=== PATIENT | male | born 1990 | race Caucasian/White ===

== ENCOUNTER → 2023-07-27 | Outpatient (CLI) | payer OTHER ==
[2023-07-27 08:05] LABS: BASOPHILS # (AUTO) 0.04 K/uL (0.00-0.20); BASOPHILS % (AUTO) 0.5 % (0.0-5.0); EOSINOPHILS # (AUTO) 0.18 K/uL (0.00-0.70); EOSINOPHILS % (AUTO) 2.2 % (0.0-8.0); HEMATOCRIT 41.4 % (42-54); IMMATURE GRANULOCYTE ABSOLUTE 0.05 K/uL (0-1); LYMPHOCYTES # (AUTO) 3.4 K/uL (1.0-4.8); LYMPHOCYTES % (AUTO) 42.8 % (21.0-51.0); MEAN CORPUSCULAR HEMOGLOBIN 32.7 pg (27.0-33.0); MEAN CORPUSCULAR HGB CONC 35.7 g/dL (32.0-36.0); MEAN CORPUSCULAR VOLUME 91.6 fL (79-99); MONOCYTES # (AUTO) 0.7 K/uL (0.1-1.0); MONOCYTES % (AUTO) 9.1 % (3.0-13.0); NEUTROPHILS # (AUTO) 3.6 K/uL (1.8-7.7); NEUTROPHILS % (AUTO) 44.8 % (40.0-77.0); PLATELET COUNT (AUTO) 328 K/uL (130-400); RED BLOOD CELL COUNT(AUTO) 4.52 MIL/uL (4.50-6.20); RED CELL DISTRIBUTION WIDTH 12.5 % (11.0-15.5)
[2023-07-27 08:11] LABS: CREATININE,URINE RANDOM 249 mg/dL (30-135)
[2023-07-27 08:21] LABS: ADD UA MICROSCOPIC YES; APPEARANCE,URINE CLEAR (CLEAR); BILIRUBIN,URINE NEGATIVE (NEGATIVE); COLOR,URINE YELLOW (YELLOW); GLUCOSE, URINE (UA) NEGATIVE (NEGATIVE); KETONES,URINE NEGATIVE (NEGATIVE); LEUKOCYTE ESTERASE ,URINE NEGATIVE Leu/uL (NEGATIVE); NITRATE,URINE NEGATIVE (NEGATIVE); OCCULT BLOOD,URINE SMALL (NEGATIVE); PH,URINE 5.5 (5.0-8.0); PROTEIN,URINE 10 mg/dL (NEGATIVE); UROBILINOGEN,URINE 0.2 mg/dL (0.2-1.0)
[2023-07-27 08:29] LABS: MUCUS,URINE RARE LPF (None Seen); WBC,URINE 0-1 /HPF (0-1)
[2023-07-27 08:43] LABS: ALBUMIN 3.8 g/dL (3.5-5.0); BILIRUBIN,TOTAL 0.2 mg/dL (0.2-1.0); POTASSIUM 3.7 mmol/L (3.5-5.1); THYROID STIMULATING HORMONE 1.57 uIU/mL (0.36-3.74); TOTAL PROTEIN, SERUM 7.2 g/dL (6.0-8.3)
== END | disposition home or self-care (01) ==
LOC: LAB 07:14
PROVIDERS: ATTEND Nurse Practitioner
DX: Z13.1 Encounter for screening for diabetes mellitus (principal); Z68.34 Body mass index [BMI] 34.0-34.9, adult; E66.9 Obesity, unspecified; J17 Pneumonia in diseases classified elsewhere; J02.9 Acute pharyngitis, unspecified; Z13.220 Encounter for screening for lipoid disorders; Z13.29 Encounter for screening for other suspected endocrine disorder; Z79.899 Other long term (current) drug therapy; M41.24 Other idiopathic scoliosis, thoracic region
CPT/HCPCS: 36415; 71046; 80053; 80061; 81001; 82043; 82306; 82570; 82607; 84443; 85025; 86900; 86901

== ENCOUNTER → 2024-03-02 | Outpatient (CLI) | payer OTHER ==
[2024-03-02 07:54] LABS: BASOPHILS # (AUTO) 0.05 K/uL (0.00-0.20); BASOPHILS % (AUTO) 0.8 % (0.0-5.0); EOSINOPHILS # (AUTO) 0.14 K/uL (0.00-0.70); EOSINOPHILS % (AUTO) 2.2 % (0.0-8.0); HEMATOCRIT 39.8 % (42-54); IMMATURE GRANULOCYTE ABSOLUTE 0.02 K/uL (0-1); LYMPHOCYTES # (AUTO) 2.6 K/uL (1.0-4.8); LYMPHOCYTES % (AUTO) 40.4 % (21.0-51.0); MEAN CORPUSCULAR HEMOGLOBIN 32.8 pg (27.0-33.0); MEAN CORPUSCULAR HGB CONC 35.7 g/dL (32.0-36.0); MEAN CORPUSCULAR VOLUME 91.9 fL (79-99); MONOCYTES # (AUTO) 0.7 K/uL (0.1-1.0); MONOCYTES % (AUTO) 10.5 % (3.0-13.0); NEUTROPHILS % (AUTO) 45.8 % (40.0-77.0); PLATELET COUNT (AUTO) 295 K/uL (130-400); RED BLOOD CELL COUNT(AUTO) 4.33 MIL/uL (4.50-6.20); RED CELL DISTRIBUTION WIDTH 12.1 % (11.0-15.5); WHITE BLOOD COUNT (AUTO) 6.5 K/uL (4.8-10.8)
[2024-03-02 08:05] LABS: CREATININE,URINE RANDOM 135.14 mg/dL (30-135)
[2024-03-02 08:08] LABS: APPEARANCE,URINE CLEAR (CLEAR); BILIRUBIN,URINE NEGATIVE (NEGATIVE); COLOR,URINE YELLOW (YELLOW); GLUCOSE, URINE (UA) NEGATIVE (NEGATIVE); HEMOGLOBIN A1C 5.2 % (4.0-6.0); KETONES,URINE NEGATIVE (NEGATIVE); LEUKOCYTE ESTERASE ,URINE NEGATIVE Leu/uL (NEGATIVE); NITRATE,URINE NEGATIVE (NEGATIVE); PH,URINE 6.5 (5.0-8.0); PROTEIN,URINE NEGATIVE (NEGATIVE); UROBILINOGEN,URINE 0.2 mg/dL (0.2-1.0)
[2024-03-02 08:23] LABS: ADD UA MICROSCOPIC NO
[2024-03-02 08:52] LABS: BILIRUBIN,TOTAL 0.5 mg/dL (0.2-1.0); CREATININE 0.9 mg/dL (0.5-1.3); POTASSIUM 3.9 mmol/L (3.5-5.1); THYROID STIMULATING HORMONE 2.27 uIU/mL (0.36-3.74); TOTAL PROTEIN, SERUM 7.2 g/dL (6.0-8.3)
[2024-03-03 08:11] LABS: PSA ULTRASENSITIVE 0.525 ng/mL (0.000-4.000)
== END | disposition home or self-care (01) ==
LOC: LAB 07:03
PROVIDERS: ATTEND Hospitalist
DX: Z13.220 Encounter for screening for lipoid disorders (principal); Z13.1 Encounter for screening for diabetes mellitus; R53.83 Other fatigue; Z79.899 Other long term (current) drug therapy
CPT/HCPCS: 36415; 80053; 80061; 81003; 82306; 82570; 82607; 83036; 84153; 84403; 84443; 85025

== ENCOUNTER → 2024-03-23 | Outpatient (CLI) | payer OTHER | END | disposition home or self-care (01) | LOC: LAB 07:22 | PROVIDERS: ATTEND Nurse Practitioner | DX: J16.8 Pneumonia due to other specified infectious organisms (principal) | CPT/HCPCS: 36415; 84145; 86738 ==

== ENCOUNTER → 2024-03-24 | Outpatient (CLI) | payer OTHER | END | disposition home or self-care (01) | LOC: LAB 08:06 | PROVIDERS: ATTEND Nurse Practitioner | DX: J16.8 Pneumonia due to other specified infectious organisms (principal); M47.815 Spondylosis without myelopathy or radiculopathy, thoracolumbar region | CPT/HCPCS: 71250 ==

== ENCOUNTER 2024-03-29 21:03 | Emergency (ER) | payer OTHER ==
[~2024-03-29] VITALS: Ht 170.2 cm; Wt 87.5 kg
[2024-03-29 21:26] VITALS: PULSE 79; RESP 18
[2024-03-29 21:29] LABS: BASOPHILS # (AUTO) 0.04 K/uL (0.00-0.20); BASOPHILS % (AUTO) 0.3 % (0.0-5.0); EOSINOPHILS # (AUTO) 0.03 K/uL (0.00-0.70); EOSINOPHILS % (AUTO) 0.2 % (0.0-8.0); HEMATOCRIT 38.4 % (42-54); IMMATURE GRANULOCYTE ABSOLUTE 0.07 K/uL (0-1); LYMPHOCYTES # (AUTO) 2.3 K/uL (1.0-4.8); LYMPHOCYTES % (AUTO) 18.4 % (21.0-51.0); MEAN CORPUSCULAR HEMOGLOBIN 32.8 pg (27.0-33.0); MEAN CORPUSCULAR HGB CONC 35.4 g/dL (32.0-36.0); MEAN CORPUSCULAR VOLUME 92.5 fL (79-99); MONOCYTES # (AUTO) 0.8 K/uL (0.1-1.0); MONOCYTES % (AUTO) 6.1 % (3.0-13.0); NEUTROPHILS # (AUTO) 9.3 K/uL (1.8-7.7); NEUTROPHILS % (AUTO) 74.4 % (40.0-77.0); PLATELET COUNT (AUTO) 365 K/uL (130-400); RED BLOOD CELL COUNT(AUTO) 4.15 MIL/uL (4.50-6.20); RED CELL DISTRIBUTION WIDTH 12.3 % (11.0-15.5); WHITE BLOOD COUNT (AUTO) 12.5 K/uL (4.8-10.8)
[2024-03-29] MEDS: ALBUTEROL 0.083% 2.5 MG/3 ML INH IH ONE (21:30)
[2024-03-29 21:39] LABS: POTASSIUM 3.8 mmol/L (3.5-5.1)
[2024-03-29 21:44] VITALS: PULSE 90; RESP 20
[2024-03-29] MEDS: BUDESONIDE 0.5 MG/2 ML INH IH STA (21:44)
[2024-03-29] MEDS: Solu-medROL 125MG VIAL IVP ONE (21:46)
[2024-03-29] MEDS: PANTOPRAZOLE 40 MG TAB DR PO ONE (21:46)
[2024-03-29] MEDS: acetaMINOPHEN WITH coDEINE 1 TAB TAB PO ONE (21:46)
[2024-03-29] MEDS ORDERED: PANT40TA PO (22:07)
[2024-03-29] MEDS ORDERED: BENZ-39 PO (22:07)
[2024-03-29] MEDS ORDERED: BUDE90AE IH (22:07)
[2024-03-29] MEDS ORDERED: GUAFACSF5L PO (22:07)
[2024-03-29 22:43] VITALS: BP 118/64; PULSE 90; RESP 18; TEMP 98.2; O2SAT 97
== END 2024-03-29 22:57 | disposition home or self-care (01) ==
LOC: EDH 21:03
DX: J40 Bronchitis, not specified as acute or chronic (principal); D72.10 Eosinophilia, unspecified; Z79.899 Other long term (current) drug therapy; Z98.890 Other specified postprocedural states; Z20.822 Contact with and (suspected) exposure to COVID-19
CPT/HCPCS: 99284; 96374; 87426; 80048; 85025; 36415; 94640 ×2; J2919

== ENCOUNTER → 2024-04-27 | Outpatient (CLI) | payer OTHER ==
[~2024-04-27] MED LIST: BENZ-39 PO; BUDE90AE IH; GUAFACSF5L PO; PANT40TA PO
== END | disposition home or self-care (01) ==
LOC: RAH 08:07
PROVIDERS: ATTEND Nurse Practitioner
DX: R05.9 Cough, unspecified (principal)
CPT/HCPCS: 36415; 71046; 86480

== ENCOUNTER → 2024-07-31 | Outpatient (CLI) | payer OTHER ==
[~2024-07-31] MED LIST changes: -BUDE90AE IH; +BUDE90AE3 IH
== END | disposition home or self-care (01) ==
LOC: RAH 08:34
PROVIDERS: ATTEND Student in an Organized Health Care Education/Training Program
DX: Q21.12 Patent foramen ovale (principal)
CPT/HCPCS: 93308; A4216

== ENCOUNTER → 2024-09-08 | Outpatient (CLI) | payer OTHER ==
[~2024-09-08] MED LIST changes: +AZIT500T2 PO; +BUDE0.5A3 NEB; +PRED20TA3 PO
[2024-09-08 08:55] LABS: BASOPHILS # (AUTO) 0.03 K/uL (0.00-0.20); BASOPHILS % (AUTO) 0.3 % (0.0-5.0); EOSINOPHILS # (AUTO) 0.04 K/uL (0.00-0.70); EOSINOPHILS % (AUTO) 0.4 % (0.0-8.0); HEMATOCRIT 40.8 % (42-54); IMMATURE GRANULOCYTE ABSOLUTE 0.05 K/uL (0-1); LYMPHOCYTES # (AUTO) 2.3 K/uL (1.0-4.8); MEAN CORPUSCULAR HEMOGLOBIN 33.1 pg (27.0-33.0); MEAN CORPUSCULAR HGB CONC 34.6 g/dL (32.0-36.0); MEAN CORPUSCULAR VOLUME 95.8 fL (79-99); MONOCYTES # (AUTO) 1.1 K/uL (0.1-1.0); MONOCYTES % (AUTO) 10.6 % (3.0-13.0); NEUTROPHILS # (AUTO) 6.9 K/uL (1.8-7.7); NEUTROPHILS % (AUTO) 66.2 % (40.0-77.0); PLATELET COUNT (AUTO) 329 K/uL (130-400); RED BLOOD CELL COUNT(AUTO) 4.26 MIL/uL (4.50-6.20); RED CELL DISTRIBUTION WIDTH 13.5 % (11.0-15.5); WHITE BLOOD COUNT (AUTO) 10.4 K/uL (4.8-10.8)
[2024-09-08 09:10] LABS: ALBUMIN 3.8 g/dL (3.5-5.0); BILIRUBIN,TOTAL 0.3 mg/dL (0.2-1.0); CREATININE 0.8 mg/dL (0.5-1.3); MAGNESIUM 1.9 mg/dL (1.80-2.40); POTASSIUM 3.7 mmol/L (3.5-5.1); TOTAL PROTEIN, SERUM 6.9 g/dL (6.0-8.3)
== END | disposition home or self-care (01) ==
LOC: LAB 08:19
PROVIDERS: ATTEND Student in an Organized Health Care Education/Training Program
DX: I10 Essential (primary) hypertension (principal); R03.0 Elevated blood-pressure reading, without diagnosis of hypertension
CPT/HCPCS: 36415; 80053; 83735; 85025

== ENCOUNTER → 2024-11-24 | Outpatient (CLI) | payer OTHER ==
[~2024-11-24] MED LIST changes: +AUD IH; +BUDE0.5A3 IH
[2024-11-24 08:28] LABS: BASOPHILS # (AUTO) 0.03 K/uL (0.00-0.20); BASOPHILS % (AUTO) 0.5 % (0.0-5.0); EOSINOPHILS # (AUTO) 0.11 K/uL (0.00-0.70); EOSINOPHILS % (AUTO) 1.7 % (0.0-8.0); HEMATOCRIT 44.3 % (42-54); IMMATURE GRANULOCYTE ABSOLUTE 0.01 K/uL (0-1); LYMPHOCYTES % (AUTO) 30.5 % (21.0-51.0); MEAN CORPUSCULAR HEMOGLOBIN 32.8 pg (27.0-33.0); MEAN CORPUSCULAR HGB CONC 35.2 g/dL (32.0-36.0); MEAN CORPUSCULAR VOLUME 93.3 fL (79-99); MONOCYTES # (AUTO) 0.6 K/uL (0.1-1.0); MONOCYTES % (AUTO) 9.9 % (3.0-13.0); NEUTROPHILS # (AUTO) 3.7 K/uL (1.8-7.7); NEUTROPHILS % (AUTO) 57.2 % (40.0-77.0); PLATELET COUNT (AUTO) 376 K/uL (130-400); RED BLOOD CELL COUNT(AUTO) 4.75 MIL/uL (4.50-6.20); RED CELL DISTRIBUTION WIDTH 11.9 % (11.0-15.5); WHITE BLOOD COUNT (AUTO) 6.4 K/uL (4.8-10.8)
== END | disposition home or self-care (01) ==
LOC: LAB 07:19
PROVIDERS: ATTEND Internal Medicine Critical Care Medicine
DX: J45.41 Moderate persistent asthma with (acute) exacerbation (principal)
CPT/HCPCS: 36415; 82785; 85025; 86001; 86003

== ENCOUNTER 2025-04-02 00:44 | Emergency (ER) | payer OTHER ==
[~2025-04-02] VITALS: Ht 172.7 cm; Wt 83.0 kg
--- NOTE | 2025-04-02 01:13 | ERN ---
General Chief Complaint: Adult-Asthma Stated Complaint: SOB Time Seen by MD: 01:01 Source: patient History of Present Illness Initial Comments 34-year-old male with a history of asthma comes in with worsening symptoms of productive cough and feeling short of breath. He has been having upper respiratory tract infection for two weeks now and been treated with steroids and Levaquin without any improvement in his symptoms. He ran out of PulmicLiquidCompass today and has been unable to give himself a treatment. In addition yesterday his son was diagnosed with COVID. Allergies: Coded Allergies: No Known Drug Allergies (Unverified Allergy, Unknown, 03/29/24) Home Meds Active Scripts Budesonide (Budesonide) 0.5 Mg/2 Ml Ampul.neb, 0.5 MG IH BID for 10 Days, #20 VIAL Prov:FREDIS RODRIGUEZ NP 11/01/24 Albuterol Sulfate (Albuterol Sulfate) 2.5 Mg/0.5 Ml Vial.neb, 2.5 MG IH Q6H for wheezing/sob, #20 INH 0 Refills Prov:FREDIS RODRIGUEZ NP 11/01/24 Prednisone (Prednisone) 20 Mg Tablet, 1 TAB PO AD for 6 Days, #14 TAB 0 Refills TAKE 1 TAB BY MOUTH THREE TIMES PER DAY X3 DAYS, THEN TAKE 1 TAB BY MOUTH TWICE A DAY X2 DAYS, THEN TAKE 1 TAB BY MOUTH ONCE A DAY X1 DAY. Prov:FREDIS RODRIGUEZ NP 11/01/24 Azithromycin (Zithromax Tri-Justen) 500 Mg Tablet, 500 MG PO DAILY for 5 Days, #5 TAB Prov:FREDIS RODRIGUEZ NP 11/01/24 Guaifenesin/Codeine Phos (Robitussin with Codeine Syrp - Sugar Free) 10 Mg-100 Mg/5 Ml Syrp, 5 ML PO Q6HPRN PRN for cough and congestion for 6 Days, #120 ML 0 Refills Prov:FREDIS RODRIGUEZ NP 11/01/24 Azithromycin (Zithromax Tri-Justen) 500 Mg Tablet, 500 MG PO DAILY for 5 Days, #7 TAB Prov:FREDIS RODRIGUEZ NP 08/28/24 Prednisone (Prednisone) 20 Mg Tablet, 1 TAB PO AD for 6 Days, #14 TAB 0 Refills TAKE 1 TAB BY MOUTH THREE TIMES PER DAY X3 DAYS, THEN TAKE 1 TAB BY MOUTH TWICE A DAY X2 DAYS, THEN TAKE 1 TAB BY MOUTH ONCE A DAY X1 DAY. Prov:FREDIS RODRIGUEZ Colleen PITCH GATHERER 08/28/24 Benzonatate (Tessalon Perles) 100 Mg Cap, 200 MG PO TID for cough, #60 CAP 0 Refills Prov:HANFREDIS SINGLETON PITCH GATHERER 08/28/24 Budesonide (Budesonide) 0.5 Mg/2 Ml Ampul.neb, 1 VIAL NEB BID for 10 Days, #20 ML 0 Refills Prov:HANFREDIS SINGLETON PITCH GATHERER 08/28/24 Guaifenesin/Codeine Phos (Robitussin with Codeine Syrp - Sugar Free) 10 Mg-100 Mg/5 Ml Syrp, 10 ML PO Q4HPRN for Cough, #150 ML 0 Refills 10 mL p.o. q.4 hours p.r.n. cough Prov:FREDIS RODRIGUEZ PITCH GATHERER 03/29/24 Benzonatate (Tessalon Perles) 100 Mg Cap, 200 MG PO TID for cough for 10 Days, #60 CAP 0 Refills Two capsules p.o. Q 8 hours p.r.n. cough Prov:FREDIS RODRIGUEZ PITCH GATHERER 03/29/24 Budesonide (Pulmicort Flexhaler) 90 Mcg Aer.pow.ba, 90 MCG IH BID for 10 Days, #1 UNIT 1 Refill Prov:FREDIS RODRIGUEZ NP 03/29/24 Pantoprazole Sodium (Protonix) 40 Mg Tablet.dr, 40 MG PO DAILY for 30 Days, #30 TAB Prov:FREDIS RODRIGUEZ NP 03/29/24 Past Medical History Past Medical History: Asthma Past Surgical History: Other Surgical History Other: LT WRIST Constitutional: (-) chills, (-) diaphoresis, (-) fever, (-) malaise, (-) weakness, (-) other documentation EENTM: (-) eye pain, (-) blurred vision, (-) tearing, (-) double vision, (-) ear pain, (-) ear discharge, (-) nose pain, (-) nose congestion, (-) throat pain, (-) Throat swelling, (-) mouth pain, (-) tooth pain, (-) mouth swelling, (-) other documentation Respiratory: (+) cough, (+) short of breath, (+) stridor Gastrointestinal/Abdominal: (-) nausea, (-) vomiting, (-) diarrhea, (-) abdominal pain, (-) abdominal distention, (-) constipation, (-) rectal bleeding, (-) dark stool/melena, (-) other documentation Genitourinary: (-) penile discharge, (-) dysuria, (-) frequency, (-) hematuria, (-) pain, (-) other documentation Musculoskeletal: (-) Neck pain, (-) back pain, (-) Flank Pain, (-) joint pain, (-) joint swelling, (-) muscle pain, (-) muscle stiffness, (-) gout, (-) other documentation Physical Exam General Appearance: (+) moderate distress Orientation: (+) alert Head/Face Trauma: No Eye: bilateral eye normal inspection, bilateral eye PERRL, bilateral eye EOMI Ear, Nose, Throat: (+) hearing grossly normal, (+) normal ENT inspection, (+) moist mucous membraine Neck: (+) normal inspection, (+) supple, (+) full range of motion Respiratory: (+) chest non-tender, (+) lungs clear, (+) well ventilated Respiratory Comment No wheezing no stridor no crackles Heart: (+) regular, (+) no gallop Vascular: (+) no edema Gastrointestinal: (+) soft Results Laboratory and Microbiology Lab and Micro Result Laboratory Tests Test 04/02/25 01:07 04/02/25 01:20 Influenza Type A Antigen Negative For Type A Influenza Type B Antigen Negative For Type B SARS-CoV-2 Antigen (Rapid) PRESUMPTIVE NEGATIVE Group A Streptococcus Rapid negative (NEGATIVE) White Blood Count 11.5 K/uL (4.8-10.8) H Red Blood Count 4.33 MIL/uL (4.50-6.20) L Hemoglobin 14.2 g/dL (14.0-18.0) Hematocrit 39.9 % (42-54) L Mean Corpuscular Volume 92.1 fL (79-99) Mean Corpuscular Hemoglobin 32.8 pg (27.0-33.0) Mean Corpuscular Hemoglobin Concent 35.6 g/dL (32.0-36.0) Red Cell Distribution Width 12.6 % (11.0-15.5) Platelet Count 340 K/uL (130-400) Mean Platelet Volume 9.1 fL (7.5-10.5) Immature Granulocyte % (Auto) 0.6 % (0-1) Neutrophils (%) (Auto) 79.4 % (40.0-77.0) H Lymphocytes (%) (Auto) 13.8 % (21.0-51.0) L Monocytes (%) (Auto) 5.9 % (3.0-13.0) Eosinophils (%) (Auto) 0.1 % (0.0-8.0) Basophils (%) (Auto) 0.2 % (0.0-5.0) Neutrophils # (Auto) 9.1 K/uL (1.8-7.7) H Lymphocytes # (Auto) 1.6 K/uL (1.0-4.8) Monocytes # (Auto) 0.7 K/uL (0.1-1.0) Eosinophils # (Auto) 0.01 K/uL (0.00-0.70) Basophils # (Auto) 0.02 K/uL (0.00-0.20) Absolute Immature Granulocyte (auto 0.07 K/uL (0-1) Nucleated Red Blood Cells 0.0 % (0.0-0.19) Sodium Level 138 mmol/L (136-145) Potassium Level 3.9 mmol/L (3.5-5.1) Chloride Level 101 mmol/L (101-111) Carbon Dioxide Level 28 mmol/L (21-32) Blood Urea Nitrogen 19 mg/dL (7-18) H Creatinine 0.9 mg/dL (0.5-1.3) Glomerular Filtration Rate Calc 115 mL/min (>90) Random Glucose 138 mg/dL (70-105) H Total Calcium 8.9 mg/dL (8.5-10.1) Procalcitonin < 0.05 ng/mL (0.05-0.5) L MDM MDM: Differential diagnosis: Upper respiratory tract infection, COVID, pneumonia, exacerbation of asthma. Rationale: Tests considered and ordered secondary to shared decision making include: Previous outside records reviewed: Old ER visits. Risk of complication and/or morbidity or mortality of patient management: None Medications-Per medication reconciliation Need for hospitalization: Patient does meet criteria for hospitalization. Need for emergency major/minor surgery: No There are no social concerns with this patient. Prescription drug management Prescriptions will include symptomatic care Patient's prior external medical records from other ER visits were reviewed by me as indicated. Prior testing and results from previous visits were reviewed. Prior tests were taken into account with medical decision making and resource utilization, independent historian/historians were used to obtain complete medical history. I independently interpreted the test that were performed, results were reviewed by me and considered findings on radiology if ordered. I gave the patient a DuoNeb he says it made him feel better. I also gave him a 80 mg soluMedrol bolus. WBCs are 11.5. Chemistry panel is normal procalcitonin is negative. Chest x-ray is negative for pneumonia, and he is negative for strep influenza and COVID. Patient feels much better now in his happy to go home. ED Course Orders Procedure Category Date Status Time Cbc With Differential LAB 04/02/25 Complete 01:09 Basic Metabolic Panel LAB 04/02/25 Complete 01:09 Covid19 (Sars Antigen LAB 04/02/25 Complete Rapid) 01:09 Influenza Type A & B, LAB 04/02/25 Complete Rapid 01:09 Procalcitonin LAB 04/02/25 Complete 01:09 Rapid (Group A Strep) LAB 04/02/25 Complete 01:09 Chest 1vw RAD 04/02/25 Resulted 01:09 Ipratropium/Albuterol PHA 04/02/25 Complete Neb (Duoneb) 01:30 Methylprednisolone PHA 04/02/25 Complete Succ 125mg (Solu-Medr 02:00 Current Medications Medications (Trade) Dose Ordered Sig/Lilian Route PRN Reason Start Time Stop Time Status Last Admin Dose Admin Albuterol (DUOneb) 1 UDVIAL ONCE ONCE IH 04/02/25 01:30 04/02/25 01:31 DC 04/02/25 01:56 Methylprednisolone Sodium Succinate (Solu-medROL 125MG) 80 mg ONCE ONCE IVP 04/02/25 02:00 04/02/25 02:01 DC 04/02/25 02:35 Vital Signs Date Time Temp Pulse Resp B/P (MAP) Pulse Ox O2 Delivery O2 Flow Rate FiO2 04/02/25 01:57 99 19 04/02/25 00:58 98.2 105 14 149/85 100 Room Air* 0 21 04/02/25 00:46 98.4 109 18 141/70 98 Room Air 0 DX & DISP Disposition: Discharge Departure Impression: Primary Impression: Acute asthma flare Additional Impression: Cough Condition: Stable Referrals: NICOLA BUI (PCP) Please follow-up with her primary care physician and please refill your prescriptions for your budesonide and can do taking your steroids. I workup today shows that you do not have COVID influenza or strep. You obviously have an asthma flare and possibly a some a viral infection going on. I have given you a steroid bolus and a nebulizer therapy and you feel better. Your chest x- ray does not show a pneumonia. IN KEENE MD Apr 02, 2025 01:13
[2025-04-02 01:27] LABS: RAPID GROUP A STREP negative (NEGATIVE)
[2025-04-02 01:28] LABS: IMMATURE GRANULOCYTE ABSOLUTE 0.07 K/uL (0-1); NUCLEATED RED BLOOD CELLS 0.0 % (0.0-0.19); PLATELET COUNT (AUTO) 340 K/uL (130-400); RED BLOOD CELL COUNT(AUTO) 4.33 MIL/uL (4.50-6.20); RED CELL DISTRIBUTION WIDTH 12.6 % (11.0-15.5); WHITE BLOOD COUNT (AUTO) 11.5 K/uL (4.8-10.8)
[2025-04-02 01:36] LABS: COVID19 (SARS ANTIGEN RAPID) PRESUMPTIVE NEGATIVE (NEGATIVE)
[2025-04-02 01:37] LABS: INFLUENZA TYPE A Negative For Type A (NEGATIVE); INFLUENZA TYPE B Negative For Type B (NEGATIVE)
[2025-04-02 01:40] LABS: CREATININE 0.9 mg/dL (0.5-1.3); GLOMERULAR FILTR. RATE CALC 115.0 mL/min (>90); GLUCOSE,RANDOM 138.0 mg/dL (70-105); SODIUM SERUM 138.0 mmol/L (136-145); UREA NITROGEN, BLOOD 19.0 mg/dL (7-18)
--- NOTE | 2025-04-02 01:56 | HMCIMG ---
EXAM: CR Chest, 1 view CLINICAL HISTORY: Cough. Asthma. COMPARISON: Chest radiograph dated 11/30/2024. FINDINGS: The lungs show no infiltrates or other acute findings. No pleural effusion or pneumothorax. The cardiomediastinal silhouette is within normal limits. No acute osseous abnormality. IMPRESSION: No acute cardiopulmonary process is evident. No adverse interval changes. /[place]
[2025-04-02 01:57] VITALS: PULSE 99; RESP 19
[2025-04-02 03:43] VITALS: BP 135/75; PULSE 95; RESP 15; TEMP 98.2; O2SAT 100
== END 2025-04-02 03:46 | disposition home or self-care (01) ==
LOC: EDH 00:44
DX: J45.909 Unspecified asthma, uncomplicated (principal); Z20.822 Contact with and (suspected) exposure to COVID-19; Z79.51 Long term (current) use of inhaled steroids; Z79.899 Other long term (current) drug therapy
CPT/HCPCS: 99284; 96374; 71045; 87426; 80048; 85025; 87880; 87804 ×2; 36415; 94640; 84145; J2919

== ENCOUNTER → 2025-04-06 | Outpatient (CLI) | payer OTHER ==
[2025-04-06 12:38] LABS: IMMATURE GRANULOCYTE ABSOLUTE 0.08 K/uL (0-1); NUCLEATED RED BLOOD CELLS 0.0 % (0.0-0.19); PLATELET COUNT (AUTO) 392 K/uL (130-400); RED BLOOD CELL COUNT(AUTO) 4.45 MIL/uL (4.50-6.20); RED CELL DISTRIBUTION WIDTH 12.6 % (11.0-15.5); WHITE BLOOD COUNT (AUTO) 9.4 K/uL (4.8-10.8)
[2025-04-06 13:12] LABS: ASPARTATE AMINOTRANSFERASE 35.0 U/L (10-37); CREATININE 0.8 mg/dL (0.5-1.3); GLOMERULAR FILTR. RATE CALC 119.0 mL/min (>90); GLUCOSE,RANDOM 91.0 mg/dL (70-105); LDL DIRECT 90.0 mg/dL (0-99); SODIUM SERUM 137.0 mmol/L (136-145); TOTAL PROTEIN, SERUM 6.4 g/dL (6.0-8.3); UREA NITROGEN, BLOOD 14.0 mg/dL (7-18)
[2025-04-06 14:47] LABS: APPEARANCE,URINE CLOUDY (CLEAR); GLUCOSE, URINE (UA) NEGATIVE (NEGATIVE); LEUKOCYTE ESTERASE ,URINE NEGATIVE Leu/uL (NEGATIVE); NITRATE,URINE NEGATIVE (NEGATIVE); OCCULT BLOOD,URINE NEGATIVE (NEGATIVE)
[2025-04-06 14:49] LABS: ADD UA MICROSCOPIC YES
[2025-04-06 14:51] LABS: UNCLASSIFIED CRYSTAL 2 /HPF (None Seen)
== END | disposition home or self-care (01) ==
LOC: LAB 11:37
PROVIDERS: ATTEND Hospitalist
DX: I10 Essential (primary) hypertension (principal); R53.83 Other fatigue
CPT/HCPCS: 36415; 80053; 80061; 81001; 82043; 82306; 82570; 82607; 83036; 84443; 85025

== ENCOUNTER → 2025-06-19 | Outpatient (CLI) | payer OTHER ==
--- NOTE | 2025-06-20 01:18 | HMCIMG ---
Exam: XR Chest, 2 View(s). CLINICAL HISTORY: Shortness of breath. COMPARISON: Previous radiograph dated 05/31/2025. FINDINGS: LUNGS: No focal consolidation or infiltrates on either side. Symmetric aeration is noted bilaterally. PLEURAL SPACES: No pleural effusion or pneumothorax. HEART: The heart size is normal. No mediastinal mass noted. BONES: Visualize thorax and spine appear unremarkable. No acute osseous abnormality. IMPRESSION: 1. No acute cardiopulmonary disease. 2. No interval change from previous radiograph date 05/31/2025. /[place]
== END | disposition home or self-care (01) ==
LOC: RAH 10:59
PROVIDERS: ATTEND Student in an Organized Health Care Education/Training Program
DX: R06.02 Shortness of breath (principal)
CPT/HCPCS: 71046

== ENCOUNTER → 2025-06-27 | Outpatient (CLI) | payer OTHER ==
[2025-06-27 10:41] LABS: IMMATURE GRANULOCYTE ABSOLUTE 0.11 K/uL (0-1); NUCLEATED RED BLOOD CELLS 0.0 % (0.0-0.19); PLATELET COUNT (AUTO) 358 K/uL (130-400); RED BLOOD CELL COUNT(AUTO) 4.43 MIL/uL (4.50-6.20); RED CELL DISTRIBUTION WIDTH 12.9 % (11.0-15.5); WHITE BLOOD COUNT (AUTO) 17.6 K/uL (4.8-10.8)
[2025-06-27 10:56] LABS: ASPARTATE AMINOTRANSFERASE 47.0 U/L (10-37); CREATININE 0.9 mg/dL (0.5-1.3); GLOMERULAR FILTR. RATE CALC 115.0 mL/min (>90); GLUCOSE,RANDOM 104.0 mg/dL (70-105); LDL DIRECT 79.0 mg/dL (0-99); SODIUM SERUM 139.0 mmol/L (136-145); TOTAL PROTEIN, SERUM 6.9 g/dL (6.0-8.3); UREA NITROGEN, BLOOD 15.0 mg/dL (7-18)
--- NOTE | 2025-06-27 15:02 | HMCIMG ---
Exam: XR Chest, 2 View. CLINICAL HISTORY: Shortness of breath. COMPARISON: Previous radiograph dated 06/19/2025. FINDINGS: LUNGS: No focal consolidation or infiltrates on either side. Symmetric aeration is noted bilaterally. PLEURAL SPACES: No pleural effusion or pneumothorax. HEART: The heart size is normal. No mediastinal mass noted. BONES: Left posterior 5th, 6th and 7th ribs old fractures with callus formation and misalignment seen. No acute osseous abnormality. IMPRESSION: 1. No acute cardiopulmonary disease. 2. No interval change from previous radiograph date 06/19/2025. /[place]
== END | disposition home or self-care (01) ==
LOC: LAB 10:18
PROVIDERS: ATTEND Student in an Organized Health Care Education/Training Program
DX: R06.02 Shortness of breath (principal); I10 Essential (primary) hypertension; E78.5 Hyperlipidemia, unspecified; I49.9 Cardiac arrhythmia, unspecified
CPT/HCPCS: 36415; 71046; 80053; 80061; 84145; 85025; 87071; 87205

== ENCOUNTER 2025-06-29 16:06 | Inpatient (IN) | payer OTHER ==
[~2025-06-29] VITALS: Ht 172.7 cm; Wt 80.0 kg
--- NOTE | 2025-06-29 16:28 | ERN ---
ED Note History of Present Illness Stated Complaint: SOB Chief Complaint: Shortness of Breath Time Seen by MD: 16:21 Dictation: PATIENT IS A 34-YEAR-OLD MALE WELL KNOWN TO [facility] [place] WITH A HISTORY OF ASTHMA THAT IS BRITTLE AND DIFFICULT TO CONTROL. HE IS COMING IN TODAY WITH COMPLAINTS OF SHORTNESS A BREATH ON EXERTION EXPIRATORY WHEEZING WITH A PRODUCTIVE COUGH GREEN-YELLOW. HE STATES HE HAD SOME LABS AND A SPUTUM CULTURE DONE BY DR. MCNEIL, THE SPUTUM CULTURE DEMONSTRATED ESBL. SAID HE SPOKE TO HIS FLUME MAKER'S WHO DID NOT AGREE WITH THE DIAGNOSIS AND THOUGHT IT WAS A CONTAMINATED SPECIMEN. HAS BEEN AFEBRILE, SHORTNESS A BREATH WITH THE EXERTION HAS BEEN COMPLIANT WITH HIS INHALERS AND MEDICATIONS AT HOME TO INCLUDE BREVYA Allergies: Coded Allergies: No Known Drug Allergies (Unverified Allergy, Unknown, 03/29/24) Home Meds Active Scripts Prednisone (Prednisone) 20 Mg Tablet, 20 MG PO DAILY for 5 Days, #5 TAB Prov:ARISTIDES GOMEZ MD 05/31/25 Budesonide (Budesonide) 0.5 Mg/2 Ml Ampul.neb, 0.5 MG IH BID for 10 Days, #20 VIAL Prov:FREDIS RODRIGUEZ 11/01/24 Albuterol Sulfate (Albuterol Sulfate) 2.5 Mg/0.5 Ml Vial.neb, 2.5 MG IH Q6H for wheezing/sob, #20 INH 0 Refills Prov:FREDIS RODRIGUEZP 11/01/24 Prednisone (Prednisone) 20 Mg Tablet, 1 TAB PO AD for 6 Days, #14 TAB 0 Refills TAKE 1 TAB BY MOUTH THREE TIMES PER DAY X3 DAYS, THEN TAKE 1 TAB BY MOUTH TWICE A DAY X2 DAYS, THEN TAKE 1 TAB BY MOUTH ONCE A DAY X1 DAY. Prov:FREDIS RODRIGUEZP 11/01/24 Azithromycin (Zithromax Tri-Justen) 500 Mg Tablet, 500 MG PO DAILY for 5 Days, #5 TAB Prov:FREDIS RODRIGUEZ DIRECTOR [employer]TELL[employer] 11/01/24 Guaifenesin/Codeine Phos (Robitussin with Codeine Syrp - Sugar Free) 10 Mg-100 Mg/5 Ml Syrp, 5 ML PO Q6HPRN PRN for cough and congestion for 6 Days, #120 ML 0 Refills Prov:FREDIS RODRIGUEZ 11/01/24 Azithromycin (Zithromax Tri-Justen) 500 Mg Tablet, 500 MG PO DAILY for 5 Days, #7 TAB Prov:FREDIS RODRIGUEZ DIRECTOR [employer] 08/28/24 Prednisone (Prednisone) 20 Mg Tablet, 1 TAB PO AD for 6 Days, #14 TAB 0 Refills TAKE 1 TAB BY MOUTH THREE TIMES PER DAY X3 DAYS, THEN TAKE 1 TAB BY MOUTH TWICE A DAY X2 DAYS, THEN TAKE 1 TAB BY MOUTH ONCE A DAY X1 DAY. Prov:FREDIS RODRIGUEZ DIRECTOR [employer]LL[employer] 08/28/24 Benzonatate (Tessalon Perles) 100 Mg Cap, 200 MG PO TID for cough, #60 CAP 0 Refills Prov:FREDIS RODRIGUEZ DIRECTOR [employer] 08/28/24 Budesonide (Budesonide) 0.5 Mg/2 Ml Ampul.neb, 1 VIAL NEB BID for 10 Days, #20 ML 0 Refills Prov:FREDIS RODRIGUEZ Colleen DIRECTOR [employer]LL[employer] 08/28/24 Guaifenesin/Codeine Phos (Robitussin with Codeine Syrp - Sugar Free) 10 Mg-100 Mg/5 Ml Syrp, 10 ML PO Q4HPRN for Cough, #150 ML 0 Refills 10 mL p.o. q.4 hours p.r.n. cough Prov:FREDIS RODRIGUEZ DIRECTOR [employer] 03/29/24 Benzonatate (Tessalon Perles) 100 Mg Cap, 200 MG PO TID for cough for 10 Days, #60 CAP 0 Refills Two capsules p.o. Q 8 hours p.r.n. cough Prov:FREDIS RODRIGUEZ Colleen DIRECTOR [employer] 03/29/24 Budesonide (Pulmicort Flexhaler) 90 Mcg Aer.pow.ba, 90 MCG IH BID for 10 Days, #1 UNIT 1 Refill Prov:FREDIS RODRIGUEZ Colleen DIRECTOR [employer]LLIGENCE 03/29/24 Pantoprazole Sodium (Protonix) 40 Mg Tablet.dr, 40 MG PO DAILY for 30 Days, #30 TAB Prov:FREDIS RODRIGUEZ Colleen DIRECTOR MARK[employer]LLIGENCE 03/29/24 Past Medical History Past Medical History: Asthma, Hypertension Surgical History: Other Surgical History Other: LT WRIST RN Note Reviewed/Agreed w/PFSH: Yes Review of System Dictation CONSTITUTIONAL: NEGATIVE EXCEPT FOR HPI HEAD/FACE: NEGATIVE EXCEPT FOR HPI EENT: NEGATIVE EXCEPT FOR HPI RESPIRATORY: NEGATIVE EXCEPT FOR HPI SHORTNESS A BREATH ON EXERTION/EXPIRATORY WHEEZING WITH PRODUCTIVE COUGH GASTROINTESTINAL/ABDOMINAL: NEGATIVE EXCEPT FOR HPI GENITOURINARY: NEGATIVE EXCEPT FOR HPI MUSCULOSKELETAL: NEGATIVE EXCEPT FOR HPI INTEGUMENTARY: NEGATIVE EXCEPT FOR HPI NEUROLOGICAL/PSYCH: NEGATIVE EXCEPT FOR HPI HEMATOLOGIC/LYMPHATIC: NEGATIVE EXCEPT FOR HPI ALL SYSTEMS NEGATIVE, EXCEPT NOTED ABOVE. 13 POINT REVIEW OF SYSTEMS ASSESSED AND ALL NEGATIVE EXCEPT FOR ABOVE. Initial Vital Sign VS Vital Signs Date Time Temp Pulse Resp B/P (MAP) Pulse Ox O2 Delivery O2 Flow Rate FiO2 06/29/25 16:08 98.1 88 20 130/87 99 Room Air 06/29/25 16:42 0 21 Physical Exam Dictation VITAL SIGNS REVIEWED GENERAL APPEARANCE: ALERT, ORIENTED X 3, [id number] ACUTE DISTRESS, WELL DEVELOPED, NOURISHED. HEAD AND FACE: NON-TRAUMATIC. EYES: PERRL, PINK CONJUNCTIVAS, EYELID NO TRAUMA, ANTERIOR CHAMBER WITH ARCUS SENILIS. EARS: PINNAS INTACT AND NO SIGNS OF TRAUMA OR ERYTHEMA EAR CANALS CLEAR AND NO DISCHARGE TM NO ERYTHEMA NOSE: NO DISCHARGE, NO BLEEDING. OROPHARYNX: MOUTH NORMAL, TONGUE PINK, PHARYNX CLEAR,NO ERYTHEMA, TONSILS NO EXUDATES, NO ABSCESSES NOTED, MUCOUS MEMBRANE MOIST NECK: SUPPLE, NON-TENDER, NO THYROMEGALY, NO MASSES, NO JVD, NO BRUITS BREAST:DEFERRED CHEST:NO TENDERNESS, NO CREPITUS, NO PARADOXICAL MOVEMENT, NO RETRACTIONS LUNGS: BILATERAL BREATH SOUNDS DIMINISHED THROUGHOUT WITH A EXPIRATORY WHEEZING TO BILATERAL UPPER AND LOWER LOBES. HAVING OBVIOUS DYSPNEA AND ABLE TO SPEAK 4- 5 WORD SENTENCES ONLY. HEART: TACHYCARDIC, NO MURMUR, NO GALLOPS VASCULAR: NO PERIPHERAL EDEMA, ABDOMEN: SOFT, POSITIVE BOWEL SOUNDS, NONDISTENDED, NO GUARDING, NONTENDER, NO REBOUND, NO MASSES NO HEPATOMEGALY, NO SPLENOMEGALY, NO MATUTE'S SIGN, NO HERNIAS. RECTAL: DEFERRED GENITAL: DEFERRED NEUROLOGICAL: NORMAL SPEECH, MOTOR FUNCTION INTACT, SENSORY FUNCTION INTACT MUSCULOSKELETAL: NECK NONTENDER, FULL RANGE OF MOTION, BACK NONTENDER, FULL RANGE OF MOTION, EXTREMITIES: NONTENDER, FULL RANGE OF MOTION SKIN: COLOR PINK, DRY, NO TURGOR, NO RASH, NO LACERATIONS, NO ABRASIONS, NO CONTUSIONS. LYMPHATIC: DEFERRED Results (Laboratory/Radiology) Laboratory/Radiology Laboratory Tests Test 06/29/25 16:35 06/29/25 16:50 12/5/25 16:51 White Blood Count 15.8 K/uL (4.8-10.8) H Red Blood Count 4.20 MIL/uL (4.50-6.20) L Hemoglobin 13.6 g/dL (14.0-18.0) L Hematocrit 39.3 % (42-54) L Mean Corpuscular Volume 93.6 fL (79-99) Mean Corpuscular Hemoglobin 32.4 pg (27.0-33.0) Mean Corpuscular Hemoglobin Concent 34.6 g/dL (32.0-36.0) Red Cell Distribution Width 12.7 % (11.0-15.5) Platelet Count 310 K/uL (130-400) Mean Platelet Volume 8.9 fL (7.5-10.5) Immature Granulocyte % (Auto) 0.7 % (0-1) Neutrophils (%) (Auto) 69.7 % (40.0-77.0) Lymphocytes (%) (Auto) 19.6 % (21.0-51.0) L Monocytes (%) (Auto) 9.0 % (3.0-13.0) Eosinophils (%) (Auto) 0.6 % (0.0-8.0) Basophils (%) (Auto) 0.4 % (0.0-5.0) Neutrophils # (Auto) 11.0 K/uL (1.8-7.7) H Lymphocytes # (Auto) 3.1 K/uL (1.0-4.8) Monocytes # (Auto) 1.4 K/uL (0.1-1.0) H Eosinophils # (Auto) 0.10 K/uL (0.00-0.70) Basophils # (Auto) 0.06 K/uL (0.00-0.20) Absolute Immature Granulocyte (auto 0.11 K/uL (0-1) Nucleated Red Blood Cells 0.0 % (0.0-0.19) Sodium Level 139 mmol/L (136-145) Potassium Level 3.6 mmol/L (3.5-5.1) Chloride Level 102 mmol/L (101-111) Carbon Dioxide Level 30 mmol/L (21-32) Blood Urea Nitrogen 12 mg/dL (7-18) Creatinine 0.9 mg/dL (0.5-1.3) Glomerular Filtration Rate Calc 115 mL/min (>90) Random Glucose 99 mg/dL (70-105) Lactic Acid Level 1.2 mmol/L (0.8-2.5) Total Calcium 8.4 mg/dL (8.5-10.1) L Blood Gas Specimen Type Arterial Arterial Blood pH 7.493 (7.350-7.450) Arterial Blood Partial Pressure CO2 29 mmHg (35-48) L Arterial Blood Partial Pressure O2 93.3 mmHg (83.0-108.0) Arterial Blood HCO3 21.9 mmol/L (21.0-28.0) Arterial Blood Oxygen Saturation 97.7 % (94.0-98.0) Arterial Blood Base Excess -0.1 mmol/L (-2.0-3.0) Blood Gas Temperature 37.0 CELSIUS (35.5-37.0) Blood Gas Vent Mode RA (ROOM AIR) FiO2 21.0 % Blood Gas Specimen Comment RR SARS-CoV-2 Antigen (Rapid) PRESUMPTIVE NEGATIVE Labs Reviewed?: Yes ED Course ED Course Orders Procedure Category Date Status Time Arterial Blood Gas RT 06/29/25 Transmitted 16:22 Blood Cult JEANNE 06/29/25 In Process 16:22 Lactic Acid LAB 06/29/25 Complete 16:22 Covid19 (Sars Antigen LAB 06/29/25 Complete Rapid) 16:22 Chest 1vw RAD 06/29/25 Resulted 16:22 Cbc With Differential LAB 06/29/25 Complete 16:22 Basic Metabolic Panel LAB 06/29/25 Complete 16:22 Magnesium 2gm Premix PHA 06/29/25 In Process 50ml (Magnesium 2gm 16:30 Methylprednisolone PHA 06/29/25 Complete Succ 125mg (Solu-Medr 16:30 Albuterol 0.083% PHA 06/29/25 Complete 2.5mg/3ml (Proventil 16:30 Budesonide 0.5 Mg/2 PHA 06/29/25 Complete Ml Inh (Pulmicort 0. 16:22 Albuterol 0.083% PHA 06/29/25 Complete 2.5mg/3ml (Proventil 16:36 Budesonide 0.5 Mg/2 PHA 06/29/25 Complete Ml Inh (Pulmicort 0. 16:36 Arterial Blood Gas LAB 06/29/25 Complete 16:50 Levofloxacin 750 PHA 06/29/25 Complete Mg/D5w 150 Ml 17:30 Edm Admit Bridge Order ADM 06/29/25 Verified 18:24 Current Medications Medications (Trade) Dose Ordered Sig/Lilian Route PRN Reason Start Time Stop Time Status Last Admin Dose Admin Albuterol Sulfate (Proventil 0.083% 2.5mg/3ml) 2.5 mg STK-MED ONCE IH 06/29/25 16:36 06/29/25 16:36 DC Albuterol Sulfate (Proventil 0.083% 2.5mg/3ml) 5 mg ONCE ONCE IH 06/29/25 16:30 06/29/25 16:38 DC 06/29/25 16:49 Budesonide (Pulmicort 0.5 Mg/2ml) 0.5 mg ONCE STAT IH 06/29/25 16:22 06/29/25 16:38 DC 06/29/25 16:49 Budesonide (Pulmicort 0.5 Mg/2ml) 0.5 mg STK-MED ONCE IH 06/29/25 16:36 06/29/25 16:36 DC Levofloxacin/ Dextrose (LEvaquIN 750 MG/ D5W 150 ML) 750 mg ONCE ONCE IV 06/29/25 17:30 06/29/25 17:31 DC Magnesium Sulfate 50 ml @ 0 mls/hr PROTOCOL IV 06/29/25 16:30 07/29/25 16:29 06/29/25 17:05 Methylprednisolone Sodium Succinate (Solu-medROL 125MG) 125 mg ONCE ONCE IVP 06/29/25 16:30 06/29/25 16:38 DC 06/29/25 16:53 Vital Signs Date Time Temp Pulse Resp B/P (MAP) Pulse Ox O2 Delivery O2 Flow Rate FiO2 06/29/25 16:52 88 22 06/29/25 16:42 96 20 135/75 98 Room Air* 0 21 06/29/25 16:08 98.1 88 20 130/87 99 Room Air 1730/patient has bilateral breath sounds, clear very diminished throughout. No longer having expiratory wheezing ABGs show respiratory alkalosis with hypercarbia. Patient aware he will be admitted to the hospital.1825/SPOKE WITH IGOR AGUILLON HOSPITALIST REVIEWED CHEST X-RAY LABS INTERVENTIONS FOR ASTHMA. HE SHE AGREED TO ADMIT Medical Decision Making MDM MDM: Differential diagnosis: Asthma exacerbation/pneumonia/bronchitis/SARS COVID/sepsis hypoxemia/outpatient treatment failure Rationale: Tests considered and ordered secondary to shared decision making include: labs, and radiology Previous outside records reviewed: Old ER visits. Risk of complication and/or morbidity or mortality of patient management: [id number] Medications-Per medication reconciliation Need for hospitalization: Patient does meet criteria for hospitalization. Patient will need to be admitted for respiratory support, IV antibiotics, pulmonary consultation Need for emergency major/minor surgery: No There are no social concerns with this patient. Prescription drug management Prescriptions will include symptomatic care Patient's prior external medical records from other ER visits were reviewed by me as indicated. Prior testing and results from previous visits were reviewed. Prior tests were taken into account with medical decision making and resource utilization, independent historian/historians were used to obtain complete medical history. I independently interpreted the test that were performed, results were reviewed by me and considered findings on radiology if ordered. Medical management and examination interpretation discussions were had by me with other qualified healthcare professionals as indicated for the patient's care. DX & DISP Disposition: Inpatient Decision to Admit Time: 17:31 Departure Impression: Primary Impression: Acute asthma flare Additional Impressions: Hypocalcemia, Tachypnea, Failure of outpatient treatment Condition: Stable Referrals: NICOLA BUI (PCP) Time of Disposition: 17:32 I have reviewed the case, and I agree with, Diagnosis and Plan FREDIS RODRIGUEZ Jun 29, 2025 16:28
[2025-06-29 16:48] LABS: IMMATURE GRANULOCYTE ABSOLUTE 0.11 K/uL (0-1); NUCLEATED RED BLOOD CELLS 0.0 % (0.0-0.19); PLATELET COUNT (AUTO) 310 K/uL (130-400); RED BLOOD CELL COUNT(AUTO) 4.20 MIL/uL (4.50-6.20); RED CELL DISTRIBUTION WIDTH 12.7 % (11.0-15.5); WHITE BLOOD COUNT (AUTO) 15.8 K/uL (4.8-10.8)
[2025-06-29] MEDS: BUDESONIDE 0.5 MG/2 ML INH IH ONE (16:49)
[2025-06-29] MEDS: ALBUTEROL 0.083% 2.5 MG/3 ML INH IH ONE ×2 (16:49)
[2025-06-29] MEDS: BUDESONIDE 0.5 MG/2 ML INH IH STA (16:49)
[2025-06-29 16:52] VITALS: PULSE 88; RESP 22
[2025-06-29 16:52] LABS: ABG BASE EXCESS -0.1 mmol/L (-2.0-3.0); ABG HCO3 21.9 mmol/L (21.0-28.0); ABG OXYGEN SATURATION 97.7 % (94.0-98.0); ABG PCO2 29 mmHg (35-48); ABG PH 7.493 (7.350-7.450); DEVICE COMMENT RR; PO2, ARTERIAL BG 93.3 mmHg (83.0-108.0); TEMPERATURE, CELSIUS BG 37.0 CELSIUS (35.5-37.0); VENT MODE, BG RA (ROOM AIR)
--- NOTE | 2025-06-29 17:04 | HMCIMG ---
EXAM: CR Chest, 1 View. CLINICAL HISTORY: SOB/COUGH WITH PRODUCTION YELLOW COMPARISON: None provided. FINDINGS: LUNGS: There is no mass, infiltrate, or acute pulmonary abnormality. PLEURAL SPACES: No pleural effusion or pneumothorax. MEDIASTINUM: Cardiac size and mediastinal contours within normal limits. BONES: No acute osseous abnormality. IMPRESSION: No acute cardiopulmonary pathology is evident. /[place]
[2025-06-29] MEDS: MAGNESIUM 2GM PREMIX 50ML 50 ML IV SCH (17:05)
[2025-06-29 17:12] LABS: CREATININE 0.9 mg/dL (0.5-1.3); GLOMERULAR FILTR. RATE CALC 115.0 mL/min (>90); GLUCOSE,RANDOM 99.0 mg/dL (70-105); SODIUM SERUM 139.0 mmol/L (136-145); UREA NITROGEN, BLOOD 12.0 mg/dL (7-18)
--- NOTE | 2025-06-29 19:03 | HP ---
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 Seen and examined patient in the ED awake,alert and coherent,appears comfortable,patient reports he feels much better now.Patient denies chest pain,palpitation,nausea,vomiting,abdominal pain and diarrhea. Latest vital signs temperature 98.1, heart rate 96, blood pressure 135/75 saturation 98% on room air. Labs: WBC 15, hemoglobin 13, hematocrit 39 platelet count 310. Total calcium 8.4 the rest of the chemistries normal. ABG result pH 7.49, CO2 29, PO2 93, bicarb 21, O2 saturation 97% base excess-0.1. SARS COVID negative. Chest x-ray result revealed no acute cardiopulmonary pathology. In the ER patient received desonide 0.5 inhalation, Solu-Medrol 125 mg IV, albuterol 5 mg inhalation, Levaquin 750 mg IV. We will admit patient for further medical management. REVIEW OF SYSTEMS CONSTITUTIONAL: Complain of fever Denies chills, or night sweats. No unintentional weight loss reported. NEUROLOGICAL: Denies headache, amaurosis fugax, motor weakness, sensory deficit, vertigo/spinning sensation, gait abnormalities, or tremors. ENT: No hearing loss, otalgia, otorrhea, rhinitis, rhinorrhea, hoarseness, or sore throat. CARDIOVASCULAR: Denies any exertional angina, dyspnea on exertion, orthopnea, paroxysmal nocturnal dyspnea, palpitations, life-threatening arrhythmias, claudication. PULMONARY: Complaints of shortness of breaths and productive cough Denies hemoptysis, pleuritic chest pain. SLEEP: Denies morning headaches, daytime somnolence or napping. Denies difficulty falling asleep, staying asleep, waking from sleep. Denies knowledge of snoring. GASTROINTESTINAL: Denies any type of dysphagia to either liquids or solids. Denies nausea, vomiting, pyrosis, early satiety, abdominal pain, diarrhea, constipation, or changes in stool consistency or caliber. Denies coffee-ground emesis, hematemesis, hematochezia, or melanotic stools. GENITOURINARY: Denies frequency, urgency, nocturia, hematuria or incontinence (Storage/Irritative symptoms.) Low urinary stream, straining to void, urinary intermittency or hesitancy, splitting of the voiding stream, terminal dribbling. ENDOCRINOLOGIC: Denies polyuria, polydipsia, polyphagia or heat/cold intolerances. HEMATOLOGIC: Denies thrombophilia/previous clots, or coagulopathy/bleeding disorders. ONCOLOGIC: Denies personal history of malignancy. DERMATOLOGIC: Denies rashes or pruritus. PSYCHIATRIC: Denies any suicidal or homicidal ideation. Denies hallucinations. PAST MEDICAL HISTORY: [ Asthma and hypertension] PAST SURGICAL HISTORY: [ Left wrist surgery ] PAST SOCIAL HISTORY: [ Patient lives with and children. Patient denies alcohol tobacco and recreational drug use] FAMILY HISTORY: [ Noncontributory ] Coded Allergies: No Known Drug Allergies (Unverified Allergy, Unknown, 03/29/24) PHYSICAL EXAM GENERAL APPEARANCE: The patient is awake, alert, and oriented, in no acute cardiopulmonary distress. NEUROLOGICAL: Cranial nerves II-XII grossly intact. Motor is 5/5 in bilateral upper and lower extremities proximal to distal. No sensory deficits. HEENT: Face is symmetric. Pupils are equal and reactive. Extraocular movements are intact. NECK: Supple. No JVD. No thyromegaly. No submental, submandibular, pre-/p ostauricular, occipital or supraclavicular lymphadenopathy. CHEST: Normal chest expansion. No Telemetry. LUNGS: Absence of any rales, rhonchi or any wheezing. CARDIOVASCULAR: Regular. S1 and S2 normal. No appreciable rubs, murmurs or gallops. ABDOMEN: Soft, nontender, and nondistended. There is no rebound, voluntary guarding, or rigidity. : Deferred. No Lim. EXTREMITIES: Non-edematous and not cyanotic. No clubbing. Good capillary refill. SKIN: No skin breakdown. Vital Sign (Last 24 Hours) 06/29/25 06/29/25 06/29/25 16:08 16:42 16:52 Temp 98.1 Pulse 88 Resp 22 B/P (MAP) 135/75 Pulse Ox 98 O2 Delivery Room Air* O2 Flow Rate 0 FiO2 21 LABS: Laboratory: Test 06/29/25 16:51 06/29/25 16:50 06/29/25 16:35 Range/Units SARS-CoV-2 Antigen (Rapid) PRESUMPTIVE NEGATIVE NEGATIVE Blood Gas Specimen Type Arterial Arterial Blood pH 7.493 H 7.350-7.450 Arterial Blood Partial Pressure CO2 29 L 35-48 mmHg Arterial Blood Partial Pressure O2 93.3 83.0-108.0 mmHg Arterial Blood HCO3 21.9 21.0-28.0 mmol/L Arterial Blood Oxygen Saturation 97.7 94.0-98.0 % Arterial Blood Base Excess -0.1 -2.0-3.0 mmol/L Blood Gas Temperature 37.0 35.5-37.0 CELSIUS Blood Gas Vent Mode RA ROOM AIR FiO2 21.0 % Blood Gas Specimen Comment RR White Blood Count 15.8 H 4.8-10.8 K/uL Red Blood Count 4.20 L 4.50-6.20 MIL/uL Hemoglobin 13.6 L 14.0-18.0 g/dL Hematocrit 39.3 L 42-54 % Mean Corpuscular Volume 93.6 79-99 fL Mean Corpuscular Hemoglobin 32.4 27.0-33.0 pg Mean Corpuscular Hemoglobin Concent 34.6 32.0-36.0 g/dL Red Cell Distribution Width 12.7 11.0-15.5 % Platelet Count 310 130-400 K/uL Mean Platelet Volume 8.9 7.5-10.5 fL Immature Granulocyte % (Auto) 0.7 0-1 % Neutrophils (%) (Auto) 69.7 40.0-77.0 % Lymphocytes (%) (Auto) 19.6 L 21.0-51.0 % Monocytes (%) (Auto) 9.0 3.0-13.0 % Eosinophils (%) (Auto) 0.6 0.0-8.0 % Basophils (%) (Auto) 0.4 0.0-5.0 % Neutrophils # (Auto) 11.0 H 1.8-7.7 K/uL Lymphocytes # (Auto) 3.1 1.0-4.8 K/uL Monocytes # (Auto) 1.4 H 0.1-1.0 K/uL Eosinophils # (Auto) 0.10 0.00-0.70 K/uL Basophils # (Auto) 0.06 0.00-0.20 K/uL Absolute Immature Granulocyte (auto 0.11 0-1 K/uL Nucleated Red Blood Cells 0.0 0.0-0.19 % Sodium Level 139 136-145 mmol/L Potassium Level 3.6 3.5-5.1 mmol/L Chloride Level 102 101-111 mmol/L Carbon Dioxide Level 30 21-32 mmol/L Blood Urea Nitrogen 12 7-18 mg/dL Creatinine 0.9 0.5-1.3 mg/dL Glomerular Filtration Rate Calc 115 >90 mL/min Random Glucose 99 70-105 mg/dL Lactic Acid Level 1.2 0.8-2.5 mmol/L Total Calcium 8.4 L 8.5-10.1 mg/dL Current Medications Medications (Trade) Dose Ordered Sig/Lilian Route PRN Reason Start Time Stop Time Status Last Admin Dose Admin Budesonide (Pulmicort 0.5 Mg/2ml) 0.5 mg ONCE STAT IH 06/29/25 16:22 06/29/25 16:38 DC 06/29/25 16:49 0.5 MG Magnesium Sulfate 50 ml @ 0 mls/hr PROTOCOL IV 06/29/25 16:30 07/29/25 16:29 06/29/25 17:05 25 MLS/HR DIAGNOSTICS / RADIOLOGY: [ ] ASSESSMENT: Acute asthma exacerbation POA Acute leukocytosis POA Acute normocytic normochromic anemia POA Hypocalcemia POA Hypertension POA PLAN: We will admit patient in medical surgical We will start on heart healthy diet We will continue Levaquin 500 mg IV daily for empiric coverage We will start on Soulmedrol 40 mg IV q12 H Continue DuoNeb treatment We will start on famotidine 20 mg p.o. daily for GI prophylaxis We will replace electrolytes as needed per protocol We will add prn medication for fever,pain,cough , nausea and vomiting We will reconcile home meds once medlist available We will seek pulmonology consultation We will request labs in am Further orders to follow depending on above results Case discussed with attending physician and came up with above treatment and plan of care. ADVANCED CARE PLANNING 1. Which of the following were discussed? Hospice Care - No Therapeutic options - Yes Advance Directives - No Other discussions - 2. Discussed with who? Patient 3. Voluntary nature of this service was explained to the patient? Yes 4. Amount of time spent - ___23 min____ 5. Reviewed by Physician? (if this service was performed by NPP) Yes Patient seen and examined by me. Agree with note by HEEL ROOM SUPERVISOR SEE ADDITIONAL ORDERS PER CHART DISCUSSED WITH NURSING STAFF AKHIL TALAVERA Jun 29, 2025 19:03
[2025-06-29] MEDS: Solu-medROL 40MG VIAL IVP SCH (20:44)
[2025-06-29] MEDS: guaiFENesin-DM 200/20MG 10ML PO PRN (21:19)
--- NOTE | 2025-06-29 22:04 | NUR ---
REPORT GIVEN TO NOAM HOOD
[2025-06-29 22:20] VITALS: BP 150/77; PULSE 97; RESP 19; TEMP 98; O2SAT 96
[2025-06-29] MEDS: SODIUM CHLORIDE 3% FOR INHALATION 4 ML/AMP VIAL.NEB IH ONE (23:28)
[2025-06-29 23:34] VITALS: PULSE 100; RESP 19; O2SAT 99
[2025-06-29 23:35] VITALS: PULSE 100; RESP 22
[2025-06-30] VITALS (15 sets, daily range): BP systolic 126–151; BP diastolic 67–92; PULSE 57–109; RESP 17–22; TEMP 97.7–98.4; O2SAT 94–100
[2025-06-30] MEDS: SODIUM CHLORIDE 3% FOR INHALATION 4 ML/AMP VIAL.NEB IH ONE (02:35)
[2025-06-30 05:18] LABS: IMMATURE GRANULOCYTE ABSOLUTE 0.09 K/uL (0-1); NUCLEATED RED BLOOD CELLS 0.0 % (0.0-0.19); PLATELET COUNT (AUTO) 353 K/uL (130-400); RED BLOOD CELL COUNT(AUTO) 4.17 MIL/uL (4.50-6.20); RED CELL DISTRIBUTION WIDTH 12.7 % (11.0-15.5); WHITE BLOOD COUNT (AUTO) 13.0 K/uL (4.8-10.8)
[2025-06-30 05:59] LABS: ASPARTATE AMINOTRANSFERASE 30.0 U/L (10-37); CREATININE 0.7 mg/dL (0.5-1.3); GLOMERULAR FILTR. RATE CALC 124.0 mL/min (>90); GLUCOSE,RANDOM 171.0 mg/dL (70-105); SODIUM SERUM 138.0 mmol/L (136-145); TOTAL PROTEIN, SERUM 6.4 g/dL (6.0-8.3); UREA NITROGEN, BLOOD 12.0 mg/dL (7-18)
[2025-06-30] MEDS: FAMOTIDINE 20MG TAB PO SCH (09:10)
--- NOTE | 2025-06-30 09:46 | PN ---
[facility] PROGRESS NOTE Date of Service: Jun 30, 2025 Time of Service: 09:44 SUBJECTIVE: Follow up visit for a 34-year-old male admitted to the hospital for acute asthma exacerbation. Patient remains on IV Levaquin, IV Solu-Medrol, bronchodilators. He is saturating adequately on room air. Continues with some cough and chest congestion. Consultation with pulmonology has been requested pending evaluation. REVIEW OF SYSTEMS CONSTITUTIONAL: Complain of fever Denies chills, or night sweats. No unintentional weight loss reported. NEUROLOGICAL: Denies headache, amaurosis fugax, motor weakness, sensory deficit, vertigo/spinning sensation, gait abnormalities, or tremors. ENT: No hearing loss, otalgia, otorrhea, rhinitis, rhinorrhea, hoarseness, or sore throat. CARDIOVASCULAR: Denies any exertional angina, dyspnea on exertion, orthopnea, paroxysmal nocturnal dyspnea, palpitations, life-threatening arrhythmias, claudication. PULMONARY: Complaints of shortness of breaths and productive cough Denies he moptysis, pleuritic chest pain. SLEEP: Denies morning headaches, daytime somnolence or napping. Denies difficulty falling asleep, staying asleep, waking from sleep. Denies knowledge of snoring. GASTROINTESTINAL: Denies any type of dysphagia to either liquids or solids. Denies nausea, vomiting, pyrosis, early satiety, abdominal pain, diarrhea, constipation, or changes in stool consistency or caliber. Denies coffee-ground emesis, hematemesis, hematochezia, or melanotic stools. GENITOURINARY: Denies frequency, urgency, nocturia, hematuria or incontinence (Storage/Irritative symptoms.) Low urinary stream, straining to void, urinary intermittency or hesitancy, splitting of the voiding stream, terminal dribbling. ENDOCRINOLOGIC: Denies polyuria, polydipsia, polyphagia or heat/cold intolerances. HEMATOLOGIC: Denies thrombophilia/previous clots, or coagulopathy/bleeding disorders. ONCOLOGIC: Denies personal history of malignancy. DERMATOLOGIC: Denies rashes or pruritus. PSYCHIATRIC: Denies any suicidal or homicidal ideation. Denies hallucinations. PHYSICAL EXAM GENERAL APPEARANCE: The patient is awake, alert, and oriented, in no acute cardiopulmonary distress. NEUROLOGICAL: Cranial nerves II-XII grossly intact. Motor is 5/5 in bilateral upper and lower extremities proximal to distal. No sensory deficits. HEENT: Face is symmetric. Pupils are equal and reactive. Extraocular movements are intact. NECK: Supple. No JVD. No thyromegaly. No submental, submandibular, pre- /postauricular, occipital or supraclavicular lymphadenopathy. CHEST: Normal chest expansion. No Telemetry. LUNGS: Scattered rhonchi with few expiratory wheezes bilaterally CARDIOVASCULAR: Regular. S1 and S2 normal. No appreciable rubs, murmurs or gallops. ABDOMEN: Soft, nontender, and nondistended. There is no rebound, voluntary guarding, or rigidity. : Deferred. No Lim. EXTREMITIES: Non-edematous and not cyanotic. No clubbing. Good capillary refill. SKIN: No skin breakdown. Vital Signs (last 8hr) Date Time Temp Pulse Resp B/P (MAP) Pulse Ox O2 Delivery O2 Flow Rate FiO2 06/30/25 06:35 58 18 N/A Room Air 21 06/30/25 06:32 57 18 06/30/25 04:00 98.2 70 17 126/67 95 Room Air 06/30/25 02:36 79 19 N/A Room Air 21 06/30/25 02:36 79 22 LABS: Laboratory: Test 06/30/25 05:12 06/29/25 16:51 06/29/25 16:50 Range/Units White Blood Count 13.0 H 4.8-10.8 K/uL Red Blood Count 4.17 L 4.50-6.20 MIL/uL Hemoglobin 13.6 L 14.0-18.0 g/dL Hematocrit 38.8 L 42-54 % Mean Corpuscular Volume 93.0 79-99 fL Mean Corpuscular Hemoglobin 32.6 27.0-33.0 pg Mean Corpuscular Hemoglobin Concent 35.1 32.0-36.0 g/dL Red Cell Distribution Width 12.7 11.0-15.5 % Platelet Count 353 130-400 K/uL Mean Platelet Volume 9.0 7.5-10.5 fL Immature Granulocyte % (Auto) 0.7 0-1 % Neutrophils (%) (Auto) 89.1 H 40.0-77.0 % Lymphocytes (%) (Auto) 7.7 L 21.0-51.0 % Monocytes (%) (Auto) 2.3 L 3.0-13.0 % Eosinophils (%) (Auto) 0.0 0.0-8.0 % Basophils (%) (Auto) 0.2 0.0-5.0 % Neutrophils # (Auto) 11.6 H 1.8-7.7 K/uL Lymphocytes # (Auto) 1.0 1.0-4.8 K/uL Monocytes # (Auto) 0.3 0.1-1.0 K/uL Eosinophils # (Auto) 0.00 0.00-0.70 K/uL Basophils # (Auto) 0.02 0.00-0.20 K/uL Absolute Immature Granulocyte (auto 0.09 0-1 K/uL Nucleated Red Blood Cells 0.0 0.0-0.19 % Sodium Level 138 136-145 mmol/L Potassium Level 4.5 3.5-5.1 mmol/L Chloride Level 104 101-111 mmol/L Carbon Dioxide Level 28 21-32 mmol/L Blood Urea Nitrogen 12 7-18 mg/dL Creatinine 0.7 0.5-1.3 mg/dL Glomerular Filtration Rate Calc 124 >90 mL/min Random Glucose 171 #H 70-105 mg/dL Lactic Acid Level 1.4 0.8-2.5 mmol/L Total Calcium 8.8 8.5-10.1 mg/dL Magnesium Level 2.20 1.80-2.40 mg/dL Total Bilirubin 0.2 0.2-1.0 mg/dL Aspartate Amino Transf (AST/SGOT) 30 10-37 U/L Alanine Aminotransferase (ALT/SGPT) 66 12-78 U/L Alkaline Phosphatase 108 50-136 U/L Total Protein 6.4 6.0-8.3 g/dL Albumin 2.8 L 3.5-5.0 g/dL SARS-CoV-2 Antigen (Rapid) PRESUMPTIVE NEGATIVE NEGATIVE Blood Gas Specimen Type Arterial Arterial Blood pH 7.493 H 7.350-7.450 Arterial Blood Partial Pressure CO2 29 L 35-48 mmHg Arterial Blood Partial Pressure O2 93.3 83.0-108.0 mmHg Arterial Blood HCO3 21.9 21.0-28.0 mmol/L Arterial Blood Oxygen Saturation 97.7 94.0-98.0 % Arterial Blood Base Excess -0.1 -2.0-3.0 mmol/L Blood Gas Temperature 37.0 35.5-37.0 CELSIUS Blood Gas Vent Mode RA ROOM AIR FiO2 21.0 % Blood Gas Specimen Comment RR Current Medications Medications (Trade) Dose Ordered Sig/Lilian Route PRN Reason Start Time Stop Time Status Last Admin Dose Admin Albuterol (DUOneb) 1 udvial [id number] IH 06/29/25 22:00 07/29/25 21:59 06/30/25 06:36 1 UDVIAL Budesonide (Pulmicort 0.5 Mg/2ml) 0.5 mg ONCE STAT IH 06/29/25 16:22 06/29/25 16:38 DC 06/29/25 16:49 0.5 MG Famotidine (Pepcid 20mg Tab) 20 mg DAILY PO 06/30/25 09:00 07/30/25 08:59 06/30/25 09:10 20 MG Guaifenesin/ Dextromethorphan (RobiTUSSin DM 200/20MG 10ML) 10 ml Q4H PRN PO COUGH 06/29/25 20:00 07/29/25 19:59 06/29/25 21:19 10 ML Levofloxacin/ Dextrose 100 ml @ 100 mls/hr Q24H IV 06/29/25 20:00 07/09/25 19:59 Magnesium Sulfate 50 ml @ 0 mls/hr PROTOCOL IV 06/29/25 16:30 07/29/25 16:29 06/29/25 17:05 25 MLS/HR Methylprednisolone Sodium Succinate (Solu-medROL 40MG) 40 mg BID IVP 06/29/25 21:00 07/29/25 20:59 06/30/25 09:10 40 MG DIAGNOSTICS / RADIOLOGY: [ ] ASSESSMENT: Acute asthma exacerbation POA Acute leukocytosis POA Acute normocytic normochromic anemia POA Hypocalcemia POA Hypertension POA PLAN: Continue admission medical surgical Continue heart healthy diet We will continue Levaquin 500 mg IV daily for empiric coverage Continue on Soulmedrol 40 mg IV q12 H Continue DuoNeb treatment Supplemental oxygen as needed, monitor saturations closely maintain 92% or above. Continue on famotidine 20 mg p.o. daily for GI prophylaxis We will replace electrolytes as needed per protocol We will add prn medication for fever,pain,cough , nausea and vomiting We will reconcile home meds once medlist available pulmonology consultation requested, follow up with recommendations We will request labs in am Further orders to follow depending on above results Case discussed with attending physician and came up with above treatment and plan of care. GIOVANNA DOUGLAS PAC Jun 30, 2025 09:46
--- NOTE | 2025-06-30 10:03 | CONS ---
[facility] CONSULTATION NOTE Date Patient Seen: Jun 30, 2025 Time of Visit: 10:03 Supervising Physician: Dr. Franz Reason for Consultation: Asthma exacerbation PROBLEM LIST: Acute leukocytosis POA Acute asthma exacerbation POA ESBL Klebsiella pneumoniae on sputum culture from 06/27/2025 Acute normocytic normochromic anemia POA Hypocalcemia POA Hypertension POA HPI: Patient is a 34-year-old male with a past medical history significant for asthma, currently followed by Dr. Ambrose retail loss prevention officer. Patient was admitted by the primary team following an acute asthma exacerbation which the patient states that his regular maintenance medications were insufficient to relieve his symptoms. Patient states that he has a home nebulizer machine and he was using albuterol almost every hour before making the decision to present to the emergency room. 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 Patient with moderate persistent asthma experiencing daily symptoms requiring home nebulizer and inhaler therapy along with rescue inhaler for acute exacerbations. Patient with multiple emergency room visits over the course of the last several months regarding his severe shortness of breath. Patient endorses a recurring upper respiratory infection that he has been dealing with as well as his children and at home with a recent diagnosis of COVID in his son. Patient was undergoing outpatient workup for procedure that he has unable to recall by Cardiology, Dr. Miladis garcia ordered a sputum culture on 06/27/2025 with current results showing Klebsiella pneumoniae ESBL. We will in itiate meropenem antibiotic treatment at this time, new cultures has been obtained on this admission. Patient is currently on nebulizer therapy q.4 hours, Solu-Medrol 40 mg b.i.d., the peak flow meter will be ordered b.i.d. for Respiratory therapy, we request that RT chart the findings in the EMR. Patient endorses the use of trelegy inhaler at home as well as albuterol, home nebulizer machine, fluticasone, montelukast, as well as Daija in the p.m.. Plan Peak flow meter b.i.d. by RT Initiate meropenem for ESBL Klebsiella pneumoniae on culture from 06/27/2025 Follow current sputum culture Continue nebulizer treatments Continue Solu-Medrol Supplemental O2 if required PAST MEDICAL HX: see above PAST SURGICAL HX: noncontributory SOCIAL HISTORY: No tobacco, ETOH, or illicit drug use Coded Allergies: No Known Drug Allergies (Unverified Allergy, Unknown, 03/29/24) REVIEW OF SYSTEMS: 12 point ROS reviewed with patient. Pertinent positives mentioned above. Otherwise negative. PHYSICAL EXAM: GENERAL: alert, weak, awake oriented x 3 HEENT: EOMI, Sclera non icteric, moist mucosa NECK: Supple, no JVD, trachea midline LUNGS: Clear breath sounds bilaterally. No wheezes HEART: Regular rate and rhythm. Normal S1 and S2, without murmurs ABD: Abdomen soft, nontender. Bowel sounds present EXT: No clubbing cyanosis or edema NEURO: Alert and oriented to person, follows commands Vital Signs (last 8hr) Date Time Temp Pulse Resp B/P (MAP) Pulse Ox O2 Delivery O2 Flow Rate FiO2 06/30/25 08:00 98.4 76 18 142/92 97 Room Air 06/30/25 06:35 58 18 N/A Room Air 21 06/30/25 06:32 57 18 06/30/25 04:00 98.2 70 17 126/67 95 Room Air 06/30/25 02:36 79 19 N/A Room Air 21 06/30/25 02:36 79 22 LABS: Hematology Labs: Test 06/30/25 05:12 Range/Units White Blood Count 13.0 H 4.8-10.8 K/uL Red Blood Count 4.17 L 4.50-6.20 MIL/uL Hemoglobin 13.6 L 14.0-18.0 g/dL Hematocrit 38.8 L 42-54 % Mean Corpuscular Volume 93.0 79-99 fL Mean Corpuscular Hemoglobin 32.6 27.0-33.0 pg Mean Corpuscular Hemoglobin Concent 35.1 32.0-36.0 g/dL Red Cell Distribution Width 12.7 11.0-15.5 % Platelet Count 353 130-400 K/uL Mean Platelet Volume 9.0 7.5-10.5 fL Immature Granulocyte % (Auto) 0.7 0-1 % Neutrophils (%) (Auto) 89.1 H 40.0-77.0 % Lymphocytes (%) (Auto) 7.7 L 21.0-51.0 % Monocytes (%) (Auto) 2.3 L 3.0-13.0 % Eosinophils (%) (Auto) 0.0 0.0-8.0 % Basophils (%) (Auto) 0.2 0.0-5.0 % Neutrophils # (Auto) 11.6 H 1.8-7.7 K/uL Lymphocytes # (Auto) 1.0 1.0-4.8 K/uL Monocytes # (Auto) 0.3 0.1-1.0 K/uL Eosinophils # (Auto) 0.00 0.00-0.70 K/uL Basophils # (Auto) 0.02 0.00-0.20 K/uL Absolute Immature Granulocyte (auto 0.09 0-1 K/uL Nucleated Red Blood Cells 0.0 0.0-0.19 % Chemistry Labs: Test 06/30/25 05:12 Range/Units Sodium Level 138 136-145 mmol/L Potassium Level 4.5 3.5-5.1 mmol/L Chloride Level 104 101-111 mmol/L Carbon Dioxide Level 28 21-32 mmol/L Blood Urea Nitrogen 12 7-18 mg/dL Creatinine 0.7 0.5-1.3 mg/dL Glomerular Filtration Rate Calc 124 >90 mL/min Random Glucose 171 #H 70-105 mg/dL Lactic Acid Level 1.4 0.8-2.5 mmol/L Total Calcium 8.8 8.5-10.1 mg/dL Magnesium Level 2.20 1.80-2.40 mg/dL Total Bilirubin 0.2 0.2-1.0 mg/dL Aspartate Amino Transf (AST/SGOT) 30 10-37 U/L Alanine Aminotransferase (ALT/SGPT) 66 12-78 U/L Alkaline Phosphatase 108 50-136 U/L Total Protein 6.4 6.0-8.3 g/dL Albumin 2.8 L 3.5-5.0 g/dL DIAGNOSTICS / RADIOLOGY RESULTS: [ ] PLAN NEURO: Minimize central acting medications as possible. Maintain fall precautions, adequate lighting during the day PULMONARY: Supplemental 02 as needed. Maintain aspiration precautions at all times CARDIOVASCULAR: Follow hemodynamics. Vital signs per facility protocol GI & NUTRITION: Continue with nutritional support. Continue stool softeners and laxatives as needed. KIDNEYS & ELECTROLYTES: Strict monitoring of intake, output and overall fluid balance. Avoid nephrotoxic medications to the extent possible. Medications to be dosed according to renal function. Monitor electrolytes and replace as needed ENDOCRINE: Maintain blood glucose between 100-180 at all times. Hypoglycemia protocol in place INFECTIOUS DISEASE: Trend temperature, WBC and procalcitonin level Follow cultures, deescalate antibiotics as soon as possible. Panculture if new onset fever ONCOLOGY/HEMATOLOGY/COAGULATION: Monitor for s/s of bleeding Monitor hemoglobin, coagulation studies as needed SKIN: Pressure ulcer prevention per facility protocol Specialty mattress ORTHO/REHAB: Continue PT/OT Prophylaxis: Continue GI and DVT prophylaxis Code Status: Full Resuscitation Disposition: TBD Other: Total patient care time exceeds 35 minutes excluding all procedures. CARLOS DE SOUZA PAC Jun 30, 2025 10:03
[2025-06-30 12:04] LABS: APPEARANCE,URINE CLOUDY (CLEAR); GLUCOSE, URINE (UA) 30 mg/dL (NEGATIVE); LEUKOCYTE ESTERASE ,URINE NEGATIVE Leu/uL (NEGATIVE); NITRATE,URINE NEGATIVE (NEGATIVE); OCCULT BLOOD,URINE NEGATIVE (NEGATIVE)
[2025-06-30 12:05] LABS: ADD UA MICROSCOPIC YES
[2025-06-30 12:10] LABS: SQUAMOUS EPITHELIAL CELL,UR RARE /HPF (0-2); YEAST,URINE BUDDING RARE /HPF (None Seen)
[2025-06-30] MEDS: MEROPENEM 1GM 1 GM VIAL IVPB SCH (17:58)
--- NOTE | 2025-06-30 18:13 | NUR ---
DCP: INITIAL ASSESSMENT Patient lives with spouse, Jose Antonio Mcknight. He has no home services. Patient has BPM at home. He is employed and is able to complete ADLs independently and drives. PCP is HENNA Mathias. Pharmacy is [facility] in [place]. DCP is home.
[2025-07-01] VITALS (15 sets, daily range): BP systolic 117–152; BP diastolic 57–87; PULSE 67–110; RESP 16–20; TEMP 97.7–98.6; O2SAT 94–97
[2025-07-01 05:46] LABS: CREATININE 0.9 mg/dL (0.5-1.3); GLOMERULAR FILTR. RATE CALC 115.0 mL/min (>90); GLUCOSE,RANDOM 115.0 mg/dL (70-105); SODIUM SERUM 142.0 mmol/L (136-145); UREA NITROGEN, BLOOD 16.0 mg/dL (7-18)
[2025-07-01 05:51] LABS: IMMATURE GRANULOCYTE ABSOLUTE 0.27 K/uL (0-1); NUCLEATED RED BLOOD CELLS 0.0 % (0.0-0.19); PLATELET COUNT (AUTO) 365 K/uL (130-400); RED BLOOD CELL COUNT(AUTO) 3.89 MIL/uL (4.50-6.20); RED CELL DISTRIBUTION WIDTH 13.1 % (11.0-15.5); WHITE BLOOD COUNT (AUTO) 21.0 K/uL (4.8-10.8)
--- NOTE | 2025-07-01 10:06 | PN ---
[facility] PROGRESS NOTE Date Patient Seen: Jul 01, 2025 Time of Visit: 10:06 Supervising Physician: Dr. Franz PROBLEM LIST: Acute leukocytosis POA Acute asthma exacerbation POA ESBL Klebsiella pneumoniae on sputum culture from 06/27/2025 Acute normocytic normochromic anemia POA Hypocalcemia POA Hypertension POA INTERVAL HISTORY: Patient evaluated at bedside today, his symptoms appear to have improved, he is currently on room air, continues with cough but denies any restrictive airways. His CT scan shows multifocal patchy infiltrates in various lobes consistent with multifocal Gram-negative pneumonia. Given the patient's age and lack of other comorbidities we will do an autoimmune workup while he is admitted. Primary to arrange outpatient IV antibiotics for administration of meropenem for ESBL Klebsiella pneumonia. White count at 21.0 today however patient continues on Solu-Medrol b.i.d.. Levaquin has been discontinued and he remains on meropenem. Continue with nebulizer treatments. Patient with concerns for oral thrush given his use of nebulizers and inhalers, nystatin swish and swallow ordered today. Plan Initiate nystatin swish and swallow Continue Solu-Medrol Continue meropenem Continue nebulizers Pending autoimmune workup Recommendation for outpatient IV antibiotics to continue meropenem REVIEW OF SYSTEMS: 12 point ROS reviewed with patient. Pertinent positives mentioned above. Otherwise negative. PHYSICAL EXAM: GENERAL: alert, weak, awake oriented x 3 HEENT: EOMI, Sclera non icteric, moist mucosa NECK: Supple, no JVD, trachea midline LUNGS: Clear breath sounds bilaterally. No wheezes HEART: Regular rate and rhythm. Normal S1 and S2, without murmurs ABD: Abdomen soft, nontender. Bowel sounds present EXT: No clubbing cyanosis or edema NEURO: Alert and oriented to person, follows commands Vital Signs (last 8hr) Date Time Temp Pulse Resp B/P (MAP) Pulse Ox O2 Delivery O2 Flow Rate FiO2 07/01/25 08:02 94 Room Air* 0 21 07/01/25 06:42 67 18 N/A Room Air 21 07/01/25 06:42 67 19 07/01/25 04:04 98.4 86 20 129/71 94 Room Air LABS: Hematology Labs: Test 07/01/25 05:14 Range/Units White Blood Count 21.0 H 4.8-10.8 K/uL Red Blood Count 3.89 L 4.50-6.20 MIL/uL Hemoglobin 12.6 L 14.0-18.0 g/dL Hematocrit 36.8 L 42-54 % Mean Corpuscular Volume 94.6 79-99 fL Mean Corpuscular Hemoglobin 32.4 27.0-33.0 pg Mean Corpuscular Hemoglobin Concent 34.2 32.0-36.0 g/dL Red Cell Distribution Width 13.1 11.0-15.5 % Platelet Count 365 130-400 K/uL Mean Platelet Volume 9.4 7.5-10.5 fL Immature Granulocyte % (Auto) 1.3 H 0-1 % Neutrophils (%) (Auto) 81.3 H 40.0-77.0 % Lymphocytes (%) (Auto) 10.7 L 21.0-51.0 % Monocytes (%) (Auto) 6.5 3.0-13.0 % Eosinophils (%) (Auto) 0.1 0.0-8.0 % Basophils (%) (Auto) 0.1 0.0-5.0 % Neutrophils # (Auto) 17.1 H 1.8-7.7 K/uL Lymphocytes # (Auto) 2.3 1.0-4.8 K/uL Monocytes # (Auto) 1.4 H 0.1-1.0 K/uL Eosinophils # (Auto) 0.02 0.00-0.70 K/uL Basophils # (Auto) 0.03 0.00-0.20 K/uL Absolute Immature Granulocyte (auto 0.27 0-1 K/uL Nucleated Red Blood Cells 0.0 0.0-0.19 % Chemistry Labs: Test 07/01/25 05:14 06/30/25 05:12 Range/Units Sodium Level 142 136-145 mmol/L Potassium Level 4.1 3.5-5.1 mmol/L Chloride Level 106 101-111 mmol/L Carbon Dioxide Level 29 21-32 mmol/L Blood Urea Nitrogen 16 7-18 mg/dL Creatinine 0.9 0.5-1.3 mg/dL Glomerular Filtration Rate Calc 115 >90 mL/min Random Glucose 115 H 70-105 mg/dL Total Calcium 8.3 L 8.5-10.1 mg/dL Lactic Acid Level 1.4 0.8-2.5 mmol/L Magnesium Level 2.20 1.80-2.40 mg/dL Total Bilirubin 0.2 0.2-1.0 mg/dL Aspartate Amino Transf (AST/SGOT) 30 10-37 U/L Alanine Aminotransferase (ALT/SGPT) 66 12-78 U/L Alkaline Phosphatase 108 50-136 U/L Total Protein 6.4 6.0-8.3 g/dL Albumin 2.8 L 3.5-5.0 g/dL DIAGNOSTICS / RADIOLOGY RESULTS: [ ] PLAN NEURO: Minimize central acting medications as possible. Maintain fall precautions, adequate lighting during the day PULMONARY: Supplemental 02 as needed. Maintain aspiration precautions at all times CARDIOVASCULAR: Follow hemodynamics. Vital signs per facility protocol GI & NUTRITION: Continue with nutritional support. Continue stool softeners and laxatives as needed. KIDNEYS & ELECTROLYTES: Strict monitoring of intake, output and overall fluid balance. Avoid nephrotoxic medications to the extent possible. Medications to be dosed according to renal function. Monitor electrolytes and replace as needed ENDOCRINE: Maintain blood glucose between 100-180 at all times. Hypoglycemia protocol in place INFECTIOUS DISEASE: Trend temperature, WBC and procalcitonin level Follow cultures, deescalate antibiotics as soon as possible. Panculture if new onset fever ONCOLOGY/HEMATOLOGY/COAGULATION: Monitor for s/s of bleeding Monitor hemoglobin, coagulation studies as needed SKIN: Pressure ulcer prevention per facility protocol Specialty mattress ORTHO/REHAB: Continue PT/OT Prophylaxis: Continue GI and DVT prophylaxis Code Status: Full Resuscitation Disposition: TBD Other: Total patient care time exceeds 35 minutes excluding all procedures. CARLOS DE SOUZA PAC Jul 01, 2025 10:06
--- NOTE | 2025-07-01 11:07 | PN ---
[facility] PROGRESS NOTE Date of Service: Jul 01, 2025 Time of Service: 11:05 SUBJECTIVE: Follow up visit for a 34-year-old male admitted to the hospital for acute asthma exacerbation. Patient remains on IV Levaquin, IV Solu-Medrol, bronchodilators. He is saturating adequately on room air. Continues with some cough and chest congestion. Consultation with pulmonology has been requested pending evaluation. 07/01/2025: Over the past 24 hours no major events reported. Patient continued to be followed closely by pulmonology team, we will be requesting CT of chest later today. Patient remains on IV Solu-Medrol, bronchodilators. Patient i nitiated on IV Merrem based on previous cultures which grew ESBL Klebsiella pneumoniae. Morning labs reviewed. REVIEW OF SYSTEMS CONSTITUTIONAL: Complain of fever Denies chills, or night sweats. No unintentional weight loss reported. NEUROLOGICAL: Denies headache, amaurosis fugax, motor weakness, sensory defici t, vertigo/spinning sensation, gait abnormalities, or tremors. ENT: No hearing loss, otalgia, otorrhea, rhinitis, rhinorrhea, hoarseness, or sore throat. CARDIOVASCULAR: Denies any exertional angina, dyspnea on exertion, orthopnea, paroxysmal nocturnal dyspnea, palpitations, life-threatening arrhythmias, claudication. PULMONARY: Complaints of shortness of breaths and productive cough Denies hemoptysis, pleuritic chest pain. SLEEP: Denies morning headaches, daytime somnolence or napping. Denies difficulty falling asleep, staying asleep, waking from sleep. Denies knowledge of snoring. GASTROINTESTINAL: Denies any type of dysphagia to either liquids or solids. Denies nausea, vomiting, pyrosis, early satiety, abdominal pain, diarrhea, constipation, or changes in stool consistency or caliber. Denies coffee-ground emesis, hematemesis, hematochezia, or melanotic stools. GENITOURINARY: Denies frequency, urgency, nocturia, hematuria or incontinence (Storage/Irritative symptoms.) Low urinary stream, straining to void, urinary intermittency or hesitancy, splitting of the voiding stream, terminal dribbling. ENDOCRINOLOGIC: Denies polyuria, polydipsia, polyphagia or heat/cold intolerances. HEMATOLOGIC: Denies thrombophilia/previous clots, or coagulopathy/bleeding disorders. ONCOLOGIC: Denies personal history of malignancy. DERMATOLOGIC: Denies rashes or pruritus. PSYCHIATRIC: Denies any suicidal or homicidal ideation. Denies hallucinations. PHYSICAL EXAM GENERAL APPEARANCE: The patient is awake, alert, and oriented, in no acute cardiopulmonary distress. NEUROLOGICAL: Cranial nerves II-XII grossly intact. Motor is 5/5 in bilateral upper and lower extremities proximal to distal. No sensory deficits. HEENT: Face is symmetric. Pupils are equal and reactive. Extraocular movements are intact. NECK: Supple. No JVD. No thyromegaly. No submental, submandibular, pre- /postauricular, occipital or supraclavicular lymphadenopathy. CHEST: Normal chest expansion. No Telemetry. LUNGS: Scattered rhonchi with few expiratory wheezes bilaterally CARDIOVASCULAR: Regular. S1 and S2 normal. No appreciable rubs, murmurs or gallops. ABDOMEN: Soft, nontender, and nondistended. There is no rebound, voluntary guarding, or rigidity. : Deferred. No Lim. EXTREMITIES: Non-edematous and not cyanotic. No clubbing. Good capillary refill. SKIN: No skin breakdown. Vital Signs (last 8hr) Date Time Temp Pulse Resp B/P (MAP) Pulse Ox O2 Delivery O2 Flow Rate FiO2 07/01/25 10:14 90 19 07/01/25 08:02 94 Room Air* 0 21 07/01/25 06:42 67 18 N/A Room Air 21 07/01/25 06:42 67 19 07/01/25 04:04 98.4 86 20 129/71 94 Room Air LABS: Laboratory: Test 07/01/25 05:14 06/30/25 11:53 06/30/25 05:12 06/29/25 16:51 Range/Units White Blood Count 21.0 H 4.8-10.8 K/uL Red Blood Count 3.89 L 4.50-6.20 MIL/uL Hemoglobin 12.6 L 14.0-18.0 g/dL Hematocrit 36.8 L 42-54 % Mean Corpuscular Volume 94.6 79-99 fL Mean Corpuscular Hemoglobin 32.4 27.0-33.0 pg Mean Corpuscular Hemoglobin Concent 34.2 32.0-36.0 g/dL Red Cell Distribution Width 13.1 11.0-15.5 % Platelet Count 365 130-400 K/uL Mean Platelet Volume 9.4 7.5-10.5 fL Immature Granulocyte % (Auto) 1.3 H 0-1 % Neutrophils (%) (Auto) 81.3 H 40.0-77.0 % Lymphocytes (%) (Auto) 10.7 L 21.0-51.0 % Monocytes (%) (Auto) 6.5 3.0-13.0 % Eosinophils (%) (Auto) 0.1 0.0-8.0 % Basophils (%) (Auto) 0.1 0.0-5.0 % Neutrophils # (Auto) 17.1 H 1.8-7.7 K/uL Lymphocytes # (Auto) 2.3 1.0-4.8 K/uL Monocytes # (Auto) 1.4 H 0.1-1.0 K/uL Eosinophils # (Auto) 0.02 0.00-0.70 K/uL Basophils # (Auto) 0.03 0.00-0.20 K/uL Absolute Immature Granulocyte (auto 0.27 0-1 K/uL Nucleated Red Blood Cells 0.0 0.0-0.19 % Sodium Level 142 136-145 mmol/L Potassium Level 4.1 3.5-5.1 mmol/L Chloride Level 106 101-111 mmol/L Carbon Dioxide Level 29 21-32 mmol/L Blood Urea Nitrogen 16 7-18 mg/dL Creatinine 0.9 0.5-1.3 mg/dL Glomerular Filtration Rate Calc 115 >90 mL/min Random Glucose 115 H 70-105 mg/dL Total Calcium 8.3 L 8.5-10.1 mg/dL Urine Color LIGHT-YELLOW YELLOW Urine Appearance CLOUDY H CLEAR Urine pH 7.0 5.0-8.0 Urine Specific Howard 1.023 1.001-1.031 Urine Protein NEGATIVE NEGATIVE mg/dL Urine Glucose (UA) 30 H NEGATIVE mg/dL Urine Ketones NEGATIVE NEGATIVE mg/dL Urine Occult Blood NEGATIVE NEGATIVE Urine Nitrate NEGATIVE NEGATIVE Urine Bilirubin NEGATIVE NEGATIVE mg/dL Urine Urobilinogen 0.2 0.2-1.0 mg/dL Urine Leukocyte Esterase NEGATIVE NEGATIVE [place]/uL Urine RBC 2-5 H 0-1 /HPF Urine WBC 2-5 H 0-1 /HPF Urine Squamous Epithelial Cells RARE 0-2 /HPF Urine Amorphous Crystals (Auto) RARE None Seen /LPF Urine Bacteria None None Seen /HPF Urine Yeast RARE None Seen /HPF Lactic Acid Level 1.4 0.8-2.5 mmol/L Magnesium Level 2.20 1.80-2.40 mg/dL Total Bilirubin 0.2 0.2-1.0 mg/dL Aspartate Amino Transf (AST/SGOT) 30 10-37 U/L Alanine Aminotransferase (ALT/SGPT) 66 12-78 U/L Alkaline Phosphatase 108 50-136 U/L Total Protein 6.4 6.0-8.3 g/dL Albumin 2.8 L 3.5-5.0 g/dL SARS-CoV-2 Antigen (Rapid) PRESUMPTIVE NEGATIVE NEGATIVE Test 06/29/25 16:50 Range/Units Blood Gas Specimen Type Arterial Arterial Blood pH 7.493 H 7.350-7.450 Arterial Blood Partial Pressure CO2 29 L 35-48 mmHg Arterial Blood Partial Pressure O2 93.3 83.0-108.0 mmHg Arterial Blood HCO3 21.9 21.0-28.0 mmol/L Arterial Blood Oxygen Saturation 97.7 94.0-98.0 % Arterial Blood Base Excess -0.1 -2.0-3.0 mmol/L Blood Gas Temperature 37.0 35.5-37.0 CELSIUS Blood Gas Vent Mode RA ROOM AIR FiO2 21.0 % Blood Gas Specimen Comment RR Current Medications Medications (Trade) Dose Ordered Sig/Lilian Route PRN Reason Start Time Stop Time Status Last Admin Dose Admin Albuterol (DUOneb) 1 udvial [id number] IH 06/29/25 22:00 07/29/25 21:59 07/01/25 10:12 1 UDVIAL Budesonide (Pulmicort 0.5 Mg/2ml) 0.5 mg ONCE STAT IH 06/29/25 16:22 06/29/25 16:38 DC 06/29/25 16:49 0.5 MG Famotidine (Pepcid 20mg Tab) 20 mg DAILY PO 06/30/25 09:00 07/30/25 08:59 07/01/25 09:07 20 MG Guaifenesin/ Dextromethorphan (RobiTUSSin DM 200/20MG 10ML) 10 ml Q4H PRN PO COUGH 06/29/25 20:00 1/4/26 19:59 07/01/25 10:51 10 ML Levofloxacin/ Dextrose 100 ml @ 100 mls/hr Q24H IV 06/29/25 20:00 07/01/25 10:09 DC 06/30/25 21:14 100 MLS/HR Magnesium Sulfate 50 ml @ 0 mls/hr PROTOCOL IV 06/29/25 16:30 07/29/25 16:29 06/29/25 17:05 25 MLS/HR Meropenem (Merrem 1gm) 1 gm Q8H IVPB 06/30/25 18:00 07/10/25 17:59 07/01/25 10:51 1 GM Methylprednisolone Sodium Succinate (Solu-medROL 40MG) 40 mg BID IVP 06/29/25 21:00 07/29/25 20:59 07/01/25 09:07 40 MG DIAGNOSTICS / RADIOLOGY: [ ] ASSESSMENT: Acute asthma exacerbation POA Acute leukocytosis POA Acute normocytic normochromic anemia POA Hypocalcemia POA Hypertension POA PLAN: Continue admission medical surgical Continue heart healthy diet continue IV Merrem Follow up with repeat cultures Continue on Soulmedrol 40 mg IV q12 H Continue DuoNeb treatment Supplemental oxygen as needed, monitor saturations closely maintain 92% or above. Continue on famotidine 20 mg p.o. daily for GI prophylaxis We will replace electrolytes as needed per protocol We will add prn medication for fever,pain,cough , nausea and vomiting We will reconcile home meds once medlist available pulmonology consultation requested, follow up with recommendations; CT chest pending We will request labs in am Further orders to follow depending on above results Case discussed with attending physician and came up with above treatment and plan of care. GIOVANNA DOUGLAS PAC Jul 01, 2025 11:07
--- NOTE | 2025-07-01 22:21 | HMCIMG ---
EXAM: Non-contrast CT examination of the chest CLINICAL HISTORY: Pneumonia. TECHNIQUE: Thin collimated axial CT images of the chest were obtained with sagittal and coronal reformatted images also submitted. CT scan is done according to ALARA (As Low as Reasonably Achievable). CONTRAST USED: None. COMPARISON: None provided. FINDINGS: There are multifocal clustered ground glass infiltrates in a bronchogram in the bilateral lung luna. The differentials could be pneumonia or hypersensitivity pneumonitis. No pleural effusion, pneumothorax, or masses evident. No pericardial effusion. The cardiac size is within normal limits. No thoracic aortic aneurysm. The pulmonary artery diameter is within normal limits. No mediastinal, axillary, or supraclavicular lymphadenopathy. No focal thyroid abnormality is evident. Incidental punctate calcifications in the right adrenal gland. The remaining included portions of the upper abdominal organs are within normal limits. No acute bony abnormality is evident. Old healed fractures in the anterolateral aspects of the bilateral fourth ribs. IMPRESSION: There are multifocal clustered ground glass infiltrates in a bronchogram in the bilateral lung luna. The differentials could be pneumonia or hypersensitivity pneumonitis. Recommend a follow-up scan after a course of antibiotics. Old healed fractures in the anterolateral aspects of the bilateral fourth ribs. /[place]
[2025-07-02] VITALS (17 sets, daily range): BP systolic 143–159; BP diastolic 75–87; PULSE 71–106; RESP 16–20; TEMP 97.8–98.6; O2SAT 95–99
[2025-07-02 03:52] LABS: IMMATURE GRANULOCYTE ABSOLUTE 0.36 K/uL (0-1); NUCLEATED RED BLOOD CELLS 0.0 % (0.0-0.19); PLATELET COUNT (AUTO) 433 K/uL (130-400); RED BLOOD CELL COUNT(AUTO) 4.31 MIL/uL (4.50-6.20); RED CELL DISTRIBUTION WIDTH 13.1 % (11.0-15.5); WHITE BLOOD COUNT (AUTO) 18.1 K/uL (4.8-10.8)
[2025-07-02 04:10] LABS: CREATININE 0.9 mg/dL (0.5-1.3); GLOMERULAR FILTR. RATE CALC 115.0 mL/min (>90); GLUCOSE,RANDOM 134.0 mg/dL (70-105); SODIUM SERUM 139.0 mmol/L (136-145); UREA NITROGEN, BLOOD 15.0 mg/dL (7-18)
--- NOTE | 2025-07-02 10:23 | PN ---
[facility] PROGRESS NOTE Date Patient Seen: Jul 02, 2025 Time of Visit: 10:23 Supervising Physician: [ ] PROBLEM LIST: Acute leukocytosis POA Acute asthma exacerbation POA ESBL Klebsiella pneumoniae on sputum culture from 06/27/2025 Acute normocytic normochromic anemia POA Hypocalcemia POA Hypertension POA INTERVAL HISTORY: Patient evaluated sitting in his chair at bedside with his present. He is currently on room air and expresses that his asthma symptoms have improved greatly. At this time, he remains on Meropenem for ESBL, klebsiella pneumonia. We will be converting this to ertapenem 1 gram daily IV piggyback in order to better assess the patient's possible or allergic reactions to this medication prior to discharge on outpatient IM invanz for continued treatment at ESBL, klebsiella pneumonia Plan Initiate nystatin swish and swallow Continue Solu-Medrol Continue ertapenem Continue nebulizers Pending autoimmune workup Recommendation for outpatient IV antibiotics to continue invanz REVIEW OF SYSTEMS: 12 point ROS reviewed with patient. Pertinent positives mentioned above. Otherwise negative. PHYSICAL EXAM: GENERAL: alert, weak, awake oriented x 3 HEENT: EOMI, Sclera non icteric, moist mucosa NECK: Supple, no JVD, trachea midline LUNGS: Clear breath sounds bilaterally. No wheezes HEART: Regular rate and rhythm. Normal S1 and S2, without murmurs ABD: Abdomen soft, nontender. Bowel sounds present EXT: No clubbing cyanosis or edema NEURO: Alert and oriented to person, follows commands Vital Signs (last 8hr) Date Time Temp Pulse Resp B/P (MAP) Pulse Ox O2 Delivery O2 Flow Rate FiO2 07/02/25 09:59 75 18 07/02/25 09:55 18 N/A Room Air 07/02/25 08:00 97.9 80 16 146/85 95 Room Air 07/02/25 06:46 71 18 N/A Room Air 21 07/02/25 06:44 71 18 07/02/25 03:36 98.2 72 18 143/75 94 Room Air LABS: Hematology Labs: Test 07/02/25 03:33 Range/Units White Blood Count 18.1 H 4.8-10.8 K/uL Red Blood Count 4.31 L 4.50-6.20 MIL/uL Hemoglobin 13.9 L 14.0-18.0 g/dL Hematocrit 41.6 L 42-54 % Mean Corpuscular Volume 96.5 79-99 fL Mean Corpuscular Hemoglobin 32.3 27.0-33.0 pg Mean Corpuscular Hemoglobin Concent 33.4 32.0-36.0 g/dL Red Cell Distribution Width 13.1 11.0-15.5 % Platelet Count 433 H 130-400 K/uL Mean Platelet Volume 9.1 7.5-10.5 fL Immature Granulocyte % (Auto) 2.0 H 0-1 % Neutrophils (%) (Auto) 87.5 H 40.0-77.0 % Lymphocytes (%) (Auto) 6.9 L 21.0-51.0 % Monocytes (%) (Auto) 3.3 3.0-13.0 % Eosinophils (%) (Auto) 0.0 0.0-8.0 % Basophils (%) (Auto) 0.3 0.0-5.0 % Neutrophils # (Auto) 15.9 H 1.8-7.7 K/uL Lymphocytes # (Auto) 1.3 1.0-4.8 K/uL Monocytes # (Auto) 0.6 0.1-1.0 K/uL Eosinophils # (Auto) 0.00 0.00-0.70 K/uL Basophils # (Auto) 0.05 0.00-0.20 K/uL Absolute Immature Granulocyte (auto 0.36 0-1 K/uL Nucleated Red Blood Cells 0.0 0.0-0.19 % Erythrocyte Sedimentation Rate 21 H 0-15 MM/HR Chemistry Labs: Test 07/02/25 03:33 Range/Units Sodium Level 139 136-145 mmol/L Potassium Level 4.3 3.5-5.1 mmol/L Chloride Level 101 101-111 mmol/L Carbon Dioxide Level 28 21-32 mmol/L Blood Urea Nitrogen 15 7-18 mg/dL Creatinine 0.9 0.5-1.3 mg/dL Glomerular Filtration Rate Calc 115 >90 mL/min Random Glucose 134 H 70-105 mg/dL Total Calcium 8.8 8.5-10.1 mg/dL C-Reactive Protein, Quantitative 11.20 H 0.5-3.0 mg/L DIAGNOSTICS / RADIOLOGY RESULTS: [ ] PLAN NEURO: Minimize central acting medications as possible. Maintain fall precautions, adequate lighting during the day PULMONARY: Supplemental 02 as needed. Maintain aspiration precautions at all times CARDIOVASCULAR: Follow hemodynamics. Vital signs per facility protocol GI & NUTRITION: Continue with nutritional support. Continue stool softeners and laxatives as needed. KIDNEYS & ELECTROLYTES: Strict monitoring of intake, output and overall fluid balance. Avoid nephrotoxic medications to the extent possible. Medications to be dosed according to renal function. Monitor electrolytes and replace as needed ENDOCRINE: Maintain blood glucose between 100-180 at all times. Hypoglycemia protocol in place INFECTIOUS DISEASE: Trend temperature, WBC and procalcitonin level Follow cultures, deescalate antibiotics as soon as possible. Panculture if new onset fever ONCOLOGY/HEMATOLOGY/COAGULATION: Monitor for s/s of bleeding Monitor hemoglobin, coagulation studies as needed SKIN: Pressure ulcer prevention per facility protocol Specialty mattress ORTHO/REHAB: Continue PT/OT Prophylaxis: Continue GI and DVT prophylaxis Code Status: Full Resuscitation Disposition: TBD Other: Total patient care time exceeds 35 minutes excluding all procedures. CARLOS DE SOUZA PAC Jul 02, 2025 10:23
--- NOTE | 2025-07-02 11:50 | PN ---
[facility] PROGRESS NOTE Date of Service: Jul 02, 2025 Time of Service: 11:[address] Sams SUBJECTIVE: Follow up visit for a 34-year-old male admitted to the hospital for acute asthma exacerbation. Patient remains on IV Levaquin, IV Solu-Medrol, bronchodilators. He is saturating adequately on room air. Continues with some cough and chest congestion. Consultation with pulmonology has been requested pending evaluation. 07/01/2025: Over the past 24 hours no major events reported. Patient continued to be followed closely by pulmonology team, we will be requesting CT of chest later today. Patient remains on IV Solu-Medrol, bronchodilators. Patient initiated on IV Merrem based on previous cultures which grew ESBL Klebsiella pneumoniae. Morning labs reviewed. 07/02/25 patient was seen by nurse practitioner and physician during rounding in room 412. Patient was evaluated by the veterinary epidemiologist and at this moment CT scan shows multifocal patchy infiltrate in various lobes consistent with multifocal Gram-negative pneumonia. Given the patient's age and lack of other comorbidities patient will undergo autoimmune workup. Pipe Fitter also recommended to arrange outpatient IV antibiotics for administration of meropenem for ESBL Klebsiella pneumoniae. WBC is trending down today is 18. Patient will continue on Solu-Medrol b.i.d.. Patient probably might have developed oral thrush given his use of nebulizers and inhalers, nystatin swish and swallow was ordered by veterinary epidemiologist as well. We will consult top case assembler for outpatient IV antibiotics treatment of meropenem as recommended by veterinary epidemiologist. We will also consult ID for antibiotics management. We will continue to monitor patient in the meantime. A.m. labs REVIEW OF SYSTEMS CONSTITUTIONAL: Denies fevers Denies chills, or night sweats. No unintentional weight loss reported. NEUROLOGICAL: Denies headache, amaurosis fugax, motor weakness, sensory deficit, vertigo/spinning sensation, gait abnormalities, or tremors. ENT: No hearing loss, otalgia, otorrhea, rhinitis, rhinorrhea, hoarseness, or sore throat. CARDIOVASCULAR: Denies any exertional angina, dyspnea on exertion, orthopnea, paroxysmal nocturnal dyspnea, palpitations, life-threatening arrhythmias, claudication. PULMONARY: Denies any shortness of breaths Denies hemoptysis, pleuritic chest pain. SLEEP: Denies morning headaches, daytime somnolence or napping. Denies difficulty falling asleep, staying asleep, waking from sleep. Denies knowledge of snoring. GASTROINTESTINAL: Denies any type of dysphagia to either liquids or solids. Denies nausea, vomiting, pyrosis, early satiety, abdominal pain, diarrhea, constipation, or changes in stool consistency or caliber. Denies coffee-ground emesis, hematemesis, hematochezia, or melanotic stools. GENITOURINARY: Denies frequency, urgency, nocturia, hematuria or incontinence (Storage/Irritative symptoms.) Low urinary stream, straining to void, urinary intermittency or hesitancy, splitting of the voiding stream, terminal dribbling. ENDOCRINOLOGIC: Denies polyuria, polydipsia, polyphagia or heat/cold intolerances. HEMATOLOGIC: Denies thrombophilia/previous clots, or coagulopathy/bleeding disorders. ONCOLOGIC: Denies personal history of malignancy. DERMATOLOGIC: Denies rashes or pruritus. PSYCHIATRIC: Denies any suicidal or homicidal ideation. Denies hallucinations. PHYSICAL EXAM GENERAL APPEARANCE: The patient is awake, alert, and oriented, in no acute cardiopulmonary distress. NEUROLOGICAL: Cranial nerves II-XII grossly intact. Motor is 5/5 in bilateral upper and lower extremities proximal to distal. No sensory deficits. HEENT: Face is symmetric. Pupils are equal and reactive. Extraocular movements are intact. NECK: Supple. No JVD. No thyromegaly. No submental, submandibular, pre-/postau ricular, occipital or supraclavicular lymphadenopathy. CHEST: Normal chest expansion. No Telemetry. LUNGS: Scattered rhonchi with few expiratory wheezes bilaterally CARDIOVASCULAR: Regular. S1 and S2 normal. No appreciable rubs, murmurs or gallops. ABDOMEN: Soft, nontender, and nondistended. There is no rebound, voluntary guarding, or rigidity. : Deferred. No Lim. EXTREMITIES: Non-edematous and not cyanotic. No clubbing. Good capillary refill. SKIN: No skin breakdown. Vital Signs (last 8hr) Date Time Temp Pulse Resp B/P (MAP) Pulse Ox O2 Delivery O2 Flow Rate FiO2 07/02/25 09:59 75 18 07/02/25 09:55 18 N/A Room Air 21 07/02/25 08:00 97.9 80 16 146/85 95 Room Air 07/02/25 06:46 71 18 N/A Room Air 21 07/02/25 06:44 71 18 LABS: Laboratory: Test 07/02/25 03:33 06/30/25 11:53 Range/Units White Blood Count 18.1 H 4.8-10.8 K/uL Red Blood Count 4.31 L 4.50-6.20 MIL/uL Hemoglobin 13.9 L 14.0-18.0 g/dL Hematocrit 41.6 L 42-54 % Mean Corpuscular Volume 96.5 79-99 fL Mean Corpuscular Hemoglobin 32.3 27.0-33.0 pg Mean Corpuscular Hemoglobin Concent 33.4 32.0-36.0 g/dL Red Cell Distribution Width 13.1 11.0-15.5 % Platelet Count 433 H 130-400 K/uL Mean Platelet Volume 9.1 7.5-10.5 fL Immature Granulocyte % (Auto) 2.0 H 0-1 % Neutrophils (%) (Auto) 87.5 H 40.0-77.0 % Lymphocytes (%) (Auto) 6.9 L 21.0-51.0 % Monocytes (%) (Auto) 3.3 3.0-13.0 % Eosinophils (%) (Auto) 0.0 0.0-8.0 % Basophils (%) (Auto) 0.3 0.0-5.0 % Neutrophils # (Auto) 15.9 H 1.8-7.7 K/uL Lymphocytes # (Auto) 1.3 1.0-4.8 K/uL Monocytes # (Auto) 0.6 0.1-1.0 K/uL Eosinophils # (Auto) 0.00 0.00-0.70 K/uL Basophils # (Auto) 0.05 0.00-0.20 K/uL Absolute Immature Granulocyte (auto 0.36 0-1 K/uL Nucleated Red Blood Cells 0.0 0.0-0.19 % Erythrocyte Sedimentation Rate 21 H 0-15 MM/HR Sodium Level 139 136-145 mmol/L Potassium Level 4.3 3.5-5.1 mmol/L Chloride Level 101 101-111 mmol/L Carbon Dioxide Level 28 21-32 mmol/L Blood Urea Nitrogen 15 7-18 mg/dL Creatinine 0.9 0.5-1.3 mg/dL Glomerular Filtration Rate Calc 115 >90 mL/min Random Glucose 134 H 70-105 mg/dL Total Calcium 8.8 8.5-10.1 mg/dL C-Reactive Protein, Quantitative 11.20 H 0.5-3.0 mg/L Urine Color LIGHT-YELLOW YELLOW Urine Appearance CLOUDY H CLEAR Urine pH 7.0 5.0-8.0 Urine Specific Bonaparte 1.023 1.001-1.031 Urine Protein NEGATIVE NEGATIVE mg/dL Urine Glucose (UA) 30 H NEGATIVE mg/dL Urine Ketones NEGATIVE NEGATIVE mg/dL Urine Occult Blood NEGATIVE NEGATIVE Urine Nitrate NEGATIVE NEGATIVE Urine Bilirubin NEGATIVE NEGATIVE mg/dL Urine Urobilinogen 0.2 0.2-1.0 mg/dL Urine Leukocyte Esterase NEGATIVE NEGATIVE Kasandra/uL Urine RBC 2-5 H 0-1 /HPF Urine WBC 2-5 H 0-1 /HPF Urine Squamous Epithelial Cells RARE 0-2 /HPF Urine Amorphous Crystals (Auto) RARE None Seen /LPF Urine Bacteria None None Seen /HPF Urine Yeast RARE None Seen /HPF Current Medications Medications (Trade) Dose Ordered Sig/Lilian Route PRN Reason Start Time Stop Time Status Last Admin Dose Admin Albuterol (DUOneb) 1 udvial [id number] IH 06/29/25 22:00 07/29/25 21:59 07/02/25 09:55 1 UDVIAL Budesonide (Pulmicort 0.5 Mg/2ml) 0.5 mg ONCE STAT IH 06/29/25 16:22 06/29/25 16:38 DC 06/29/25 16:49 0.5 MG Famotidine (Pepcid 20mg Tab) 20 mg DAILY PO 06/30/25 09:00 07/30/25 08:59 07/02/25 09:51 20 MG Guaifenesin/ Dextromethorphan (RobiTUSSin DM 200/20MG 10ML) 10 ml Q4H PRN PO COUGH 06/29/25 20:00 07/29/25 19:59 07/01/25 21:41 10 ML Levofloxacin/ Dextrose 100 ml @ 100 mls/hr Q24H IV 06/29/25 20:00 07/01/25 10:09 DC 06/30/25 21:14 100 MLS/HR Magnesium Sulfate 50 ml @ 0 mls/hr PROTOCOL IV 06/29/25 16:30 07/29/25 16:29 06/29/25 17:05 25 MLS/HR Meropenem (Merrem 1gm) 1 gm Q8H IVPB 06/30/25 18:00 07/10/25 17:59 07/02/25 09:51 1 GM Methylprednisolone Sodium Succinate (Solu-medROL 40MG) 40 mg BID IVP 06/29/25 21:00 07/29/25 20:59 07/02/25 09:51 40 MG Nystatin (NYSTatin [id number] UNIT/ML 5ML UDCUP) 5 ml QID PO 07/01/25 17:00 07/31/25 16:59 07/02/25 09:51 5 ML DIAGNOSTICS / RADIOLOGY: [ ] ASSESSMENT: Acute asthma exacerbation POA Acute leukocytosis POA Acute normocytic normochromic anemia POA Hypocalcemia POA Hypertension POA PLAN: Patient was evaluated by the veterinary epidemiologist and at this moment CT scan shows multifocal patchy infiltrate in various lobes consistent with multifocal Gram- negative pneumonia. Given the patient's age and lack of other comorbidities patient will undergo autoimmune workup. Pipe Fitter also recommended to arran ge outpatient IV antibiotics for administration of meropenem for ESBL Klebsiella pneumoniae. WBC is trending down today is 18. Patient will continue on Solu- Medrol b.i.d.. Patient probably might have developed oral thrush given his use of nebulizers and inhalers, nystatin swish and swallow was ordered by veterinary epidemiologist as well. We will consult top case assembler for outpatient IV anti biotics treatment of meropenem as recommended by veterinary epidemiologist. We will also consult ID for antibiotics management. We will continue to monitor patient in the meantime. A.m. labs Continue admission medical surgical Continue heart healthy diet continue IV Merrem Follow up with repeat cultures Continue on Soulmedrol 40 mg IV q12 H Continue DuoNeb treatment Supplemental oxygen as needed, monitor saturations closely maintain 92% or above. Continue on famotidine 20 mg p.o. daily for GI prophylaxis We will replace electrolytes as needed per protocol We will add prn medication for fever,pain,cough , nausea and vomiting We will request labs in am Further orders to follow depending on above results Case discussed with attending physician and came up with above treatment and plan of care. ATTESTATION BY PHYSICIAN I have seen and examined the patient. I reviewed the documentation, medical decision making, and treatment plan as noted by the mid-level provider above. I agree with the findings and plan of care. ERICH SAMS MD, [facility]ATAR[facility]YNA B [facility] Jul 02, 2025 11:50
[2025-07-02 13:10] LABS: INR 0.98 (0.85-1.15)
[2025-07-02] MEDS ORDERED: PHARMACY COMMUNICATION MISC SCH (16:00)
--- NOTE | 2025-07-02 17:58 | NUR ---
CM NOTE CM spoke to Ana Luisa Cota with [facility]. Patient has approval for infusions at [facility] Mon-Wednesday and weekends at [facility]. First appointment scheduled for tomorrow at 1000 AM. CM updated Cj Cristobal NP and Andrew KABA with approval. Patient is pending midline placement. Per Cj Cristobal NP, plan is for discharge tomorrow morning. Patient is also pending first dose of Invanz. CM updated primary nurse.
[2025-07-02] MEDS: FAMOTIDINE 20MG TAB PO SCH (20:12)
[2025-07-02] MEDS: amLODIPine 5 MG TAB PO SCH (20:12)
[2025-07-03] VITALS (7 sets, daily range): BP systolic 130–152; BP diastolic 76–87; PULSE 60–96; RESP 16–18; TEMP 97.8–98; O2SAT 96–97
[2025-07-03 03:58] LABS: IMMATURE GRANULOCYTE ABSOLUTE 0.65 K/uL (0-1); NUCLEATED RED BLOOD CELLS 0.0 % (0.0-0.19); PLATELET COUNT (AUTO) 456 K/uL (130-400); RED BLOOD CELL COUNT(AUTO) 4.43 MIL/uL (4.50-6.20); RED CELL DISTRIBUTION WIDTH 13.2 % (11.0-15.5); WHITE BLOOD COUNT (AUTO) 19.6 K/uL (4.8-10.8)
[2025-07-03 04:12] LABS: ASPARTATE AMINOTRANSFERASE 18.0 U/L (10-37); CREATININE 0.9 mg/dL (0.5-1.3); GLOMERULAR FILTR. RATE CALC 115.0 mL/min (>90); GLUCOSE,RANDOM 127.0 mg/dL (70-105); SODIUM SERUM 137.0 mmol/L (136-145); TOTAL PROTEIN, SERUM 6.2 g/dL (6.0-8.3); UREA NITROGEN, BLOOD 17.0 mg/dL (7-18)
[2025-07-03 08:13] LABS: RHEUMATOID ARTHRITIS FACTOR 14.0 IU/mL (<14.0)
[2025-07-03] MEDS: MULTIVITAMIN TABLET PO SCH (08:47)
[2025-07-03] MEDS: amLODIPine 5 MG TAB PO SCH (08:47)
[2025-07-03] MEDS: ERTAPENEM SODIUM 1 GM in 0.9%NACL 50ML 50 ML IV SCH (09:24)
--- NOTE | 2025-07-03 09:42 | NUR ---
PATIENT RECEIVING FIRST DOSE OF OUTPATIENT ANTIBIOTIC, DISCHARGE SIGNED BY PATIENT, EDUCATION PROVIDED ON PREVENTING ASTHMA EXACERBATION AND WHERE AND WHEN TO CONTINUE OUTPATIENT ANTIBIOTIC TREATMENTS. PATIENT VERBALIZED UNDERSTANDING. IV REMOVED INTACT. MIDLINE TO REMAIN IN PLACE. ALL QUESTIONS AND CONCERNS ANSWERED. PATIENT TO BE DISCHARGED ONCE IV ABX COMPLETE.
--- NOTE | 2025-07-03 10:24 | NUR ---
IV ABX COMPLETE. PATIENT DISCHARGED AND TAKEN DOWN VIA WHEELCHAIR, ALERT AND ORIENTED X 4
--- NOTE | 2025-07-03 12:30 | DS ---
Discharge Summary Hospital Course Summary: DATE OF ADMISSION:[06/29/2025] DATE OF DISCHARGE:[07/03/2025] DISPOSITION:[Home] CONDITION:[] Medically stable CONSULTANTS:[Electronics Installer, ID] FOLLOW UP APPOINTMENTS:[Electronics Installer within one week. Patient to follow up in outpatient wound care clinic Wednesday through Wednesday for IV antibiotics and there on Wednesday and Wednesday follow-up at [facility] in ER for IV antibiotics] PROCEDURES:[None] IMAGING: report attached to summary MICROBIOLOGY: report attached to summary ACTIVITY:[Independent] HOME MEDICATIONS: see [facility] NEW MEDICATIONS:[Invanz 1 g daily as per ID. Amlodipine, nystatin, prednisolone ] EMERGENCY INSTRUCTIONS: The patient was instructed to present to the nearest Emergency departmentr or call 911 once their symptoms will return or worsen Piggery Worker(s): Patient is 34 years old male who came to emergency department with a complaint of acute asthma exacerbation. Patient was placed on IV Levaquin, IV Solu-Medrol and bronchodilators. Chest x-ray was negative. Chest CT showed multiple clustered ground-glass infiltrate bilateral lungs, pneumonia and old healed fracture in bilateral 4th ribs. Due to history of ESBL Klebsiella pneumoniae ID was consulted. Sputum positive for Gram-positive cocci and Gram-positive rods, rare yeast. As per lending consultant they recommended that patient to be discharged on antibiotics through the IV home. As per ID patient was cleared to be discharged on Invanz which will be given to the patient on daily basis at [facility] Wednesday through Wednesday and then follow on Wednesday and Wednesday in ER. Patient was advised to follow up outpatient with the PCP in 2 to 3 days, lending consultant within one week. Procedure(s): REVIEW OF SYSTEMS CONSTITUTIONAL: Denies fevers Denies chills, or night sweats. No unintentional weight loss reported. NEUROLOGICAL: Denies headache, amaurosis fugax, motor weakness, sensory deficit, vertigo/spinning sensation, gait abnormalities, or tremors. ENT: No hearing loss, otalgia, otorrhea, rhinitis, rhinorrhea, hoarseness, or sore throat. CARDIOVASCULAR: Denies any exertional angina, dyspnea on exertion, orthopnea, paroxysmal nocturnal dyspnea, palpitations, life-threatening arrhythmias, claudication. PULMONARY: Denies any shortness of breaths Denies hemoptysis, pleuritic chest pain. SLEEP: Denies morning headaches, daytime somnolence or napping. Denies difficulty falling asleep, staying asleep, waking from sleep. Denies knowledge of snoring. GASTROINTESTINAL: Denies any type of dysphagia to either liquids or solids. Denies nausea, vomiting, pyrosis, early satiety, abdominal pain, diarrhea, constipation, or changes in stool consistency or caliber. Denies coffee-ground emesis, hematemesis, hematochezia, or melanotic stools. GENITOURINARY: Denies frequency, urgency, nocturia, hematuria or incontinence (Storage/Irritative symptoms.) Low urinary stream, straining to void, urinary intermittency or hesitancy, splitting of the voiding stream, terminal dribbling. ENDOCRINOLOGIC: Denies polyuria, polydipsia, polyphagia or heat/cold intoler ances. HEMATOLOGIC: Denies thrombophilia/previous clots, or coagulopathy/bleeding disorders. ONCOLOGIC: Denies personal history of malignancy. DERMATOLOGIC: Denies rashes or pruritus. PSYCHIATRIC: Denies any suicidal or homicidal ideation. Denies hallucinations. PHYSICAL EXAM GENERAL APPEARANCE: The patient is awake, alert, and oriented, in no acute cardiopulmonary distress. NEUROLOGICAL: Cranial nerves II-XII grossly intact. Motor is 5/5 in bilateral upper and lower extremities proximal to distal. No sensory deficits. HEENT: Face is symmetric. Pupils are equal and reactive. Extraocular movements are intact. NECK: Supple. No JVD. No thyromegaly. No submental, submandibular, pre- /postauricular, occipital or supraclavicular lymphadenopathy. CHEST: Normal chest expansion. No Telemetry. LUNGS: Scattered rhonchi with few expiratory wheezes bilaterally CARDIOVASCULAR: Regular. S1 and S2 normal. No appreciable rubs, murmurs or gallops. ABDOMEN: Soft, nontender, and nondistended. There is no rebound, voluntary guarding, or rigidity. : Deferred. No Lim. EXTREMITIES: Non-edematous and not cyanotic. No clubbing. Good capillary refill. SKIN: No skin breakdown. Assessment/Plan: ASSESSMENT: Acute asthma exacerbation POA ESBL Klebsiella pneumoniae sputum Acute leukocytosis POA Acute normocytic normochromic anemia POA Hypocalcemia POA Hypertension POA Home Medications: Active Scripts Prednisone (Prednisone) 20 Mg Tablet, 1 TAB PO BID for 5 Days, #11 TAB 0 Refills day 1 ( take 2 tablets in am and 2 tablets in pm) day 2 (take 2 tablets in am and 1 in pm) day 3 (take 1 tablet in am and 1 tablet in pm) day 4 take 1 tablet in am day 5 take 1 tablet in am Prov:KHRIS ZAIDI [facility] 07/03/25 Nystatin (Nystatin) 100,000 Unit/Ml Oral.susp, 5 ML PO QID, #30 ML Prov:KHRIS ZAIDI [facility] 07/03/25 Amlodipine Besylate (Norvasc 5Mg Tab) 5 Mg Tablet, 7.5 MG PO HS, #60 TAB Prov:KHRIS ZAIDI [facility] 07/03/25 Reported Medications Multivitamins,Therapeutic (Multivitamin Tablet) 400 Mcg Tab, 1 TAB PO DAILY for 30 Days, #30 TAB 0 Refills 06/29/25 Omalizumab (Xolair) 150 Mg Vial, 150 MG SQ QMONTH, VIAL 06/29/25 Fluticasone Propionate (Flonase Nasal Ballinger) 50 Mcg/Actuation Ballinger, 2 SPRAY NS DAILY, #16 GM 0 Refills 06/29/25 Fexofenadine HCl (Daija Allergy) 60 Mg Tablet, 1 TAB PO DAILY for allergy symptoms for 30 Days, #60 TAB 0 Refills 06/29/25 Alprazolam (Alprazolam) 0.5 Mg Tab.rapdis, 1 TAB PO X01ENIM PRN for ANXIETY/AGITATION for 30 Days, #60 TAB 0 Refills 06/29/25 Dextroamphetamine/Amphetamine (Adderall 30 mg Tablet) 30 Mg Tablet, 1 TAB PO BID for 30 Days, #60 TAB 0 Refills 06/29/25 Montelukast Sodium (Montelukast Sodium) 10 Mg Tablet, 1 TAB PO DAILY for 30 Days, #30 TAB 0 Refills 06/29/25 Amlodipine Besylate (Amlodipine Besylate) 10 Mg Tablet, 1 TAB PO DAILY for 30 Days, #30 TAB 0 Refills 06/29/25 Famotidine (Pepcid) 20 Mg Tablet, 1 TAB PO HS for 30 Days, #60 TAB 0 Refills 06/29/25 Discontinued Reported Medications Amlodipine Besylate (Amlodipine Besylate) 5 Mg Tablet, 1 TAB PO HS for 30 Days, #30 TAB 0 Refills 06/29/25 Discontinued Scripts Prednisone (Prednisone) 20 Mg Tablet, 20 MG PO DAILY for 5 Days, #5 TAB Prov:ARISTIDES GOMEZ MD 05/31/25 Budesonide (Budesonide) 0.5 Mg/2 Ml Ampul.neb, 0.5 MG IH BID for 10 Days, #20 VIAL Prov:FREDIS RODRIGUEZ [employer] 11/01/24 Albuterol Sulfate (Albuterol Sulfate) 2.5 Mg/0.5 Ml Vial.neb, 2.5 MG IH Q6H for wheezing/sob, #20 INH 0 Refills Prov:FREDIS RODRIGUEZ 11/01/24 Prednisone (Prednisone) 20 Mg Tablet, 1 TAB PO AD for 6 Days, #14 TAB 0 Refills TAKE 1 TAB BY MOUTH THREE TIMES PER DAY X3 DAYS, THEN TAKE 1 TAB BY MOUTH TWICE A DAY X2 DAYS, THEN TAKE 1 TAB BY MOUTH ONCE A DAY X1 DAY. Prov:FREDIS RODRIGUEZ [employer] 11/01/24 Azithromycin (Zithromax Tri-Justen) 500 Mg Tablet, 500 MG PO DAILY for 5 Days, #5 TAB Prov:FREDIS RODRIGUEZ [employer] 11/01/24 Guaifenesin/Codeine Phos (Robitussin with Codeine Syrp - Sugar Free) 10 Mg-100 Mg/5 Ml Syrp, 5 ML PO Q6HPRN PRN for cough and congestion for 6 Days, #120 ML 0 Refills Prov:FREDIS RODRIGUEZ [employer] 11/01/24 Azithromycin (Zithromax Tri-Justen) 500 Mg Tablet, 500 MG PO DAILY for 5 Days, #7 TAB Prov:FREDIS RODRIGUEZ [employer]ARM[employer] 08/28/24 Prednisone (Prednisone) 20 Mg Tablet, 1 TAB PO AD for 6 Days, #14 TAB 0 Refills TAKE 1 TAB BY MOUTH THREE TIMES PER DAY X3 DAYS, THEN TAKE 1 TAB BY MOUTH TWICE A DAY X2 DAYS, THEN TAKE 1 TAB BY MOUTH ONCE A DAY X1 DAY. Prov:FREDIS RODRIGUEZ [employer] 08/28/24 Benzonatate (Tessalon Perles) 100 Mg Cap, 200 MG PO TID for cough, #60 CAP 0 Refills Prov:FREDIS RODRIGUEZ Colleen [facility] 08/28/24 Budesonide (Budesonide) 0.5 Mg/2 Ml Ampul.neb, 1 VIAL NEB BID for 10 Days, #20 ML 0 Refills Prov:FREDIS RODRIGUEZ Colleen [facility] 08/28/24 Guaifenesin/Codeine Phos (Robitussin with Codeine Syrp - Sugar Free) 10 Mg-100 Mg/5 Ml Syrp, 10 ML PO Q4HPRN for Cough, #150 ML 0 Refills 10 mL p.o. q.4 hours p.r.n. cough Prov:MICHAELFREDIS Colleen [facility] 03/29/24 Benzonatate (Tessalon Perles) 100 Mg Cap, 200 MG PO TID for cough for 10 Days, #60 CAP 0 Refills Two capsules p.o. Q 8 hours p.r.n. cough Prov:HANFREDIS SINGLETON [facility] 03/29/24 Budesonide (Pulmicort Flexhaler) 90 Mcg Aer.pow.ba, 90 MCG IH BID for 10 Days, #1 UNIT 1 Refill Prov:FREDIS RODRIGUEZ Colleen [facility] 03/29/24 Pantoprazole Sodium (Protonix) 40 Mg Tablet.dr, 40 MG PO DAILY for 30 Days, #30 TAB Prov:MICHAELFREDIS Macias [facility] 03/29/24 Time spent arranging discharge: 31-60 minutes ATTESTATION BY PHYSICIAN I have seen and examined the patient. I reviewed the documentation, medical de cision making, and treatment plan as noted by the mid-level provider above. I agree with the findings and plan of care. ERICH SAMS MD, KATARZYNA B [facility] Jul 03, 2025 12:30
[2025-07-04 15:14] LABS: ATYPICAL P-ANCA AB <1:20 titer (Neg:<1:20)
== END 2025-07-03 10:30 | disposition home or self-care (01) | DRG 178 ==
LOC: EDH 16:06 → INTOOBSV 19:34 → EDHIP 19:34 → OBSVTOIN 19:34 → 4BH 21:58
PROVIDERS: ADMIT Hospitalist; ATTEND Hospitalist
PROC: 05HY33Z Insertion of Infusion Device into Upper Vein, Percutaneous Approach (ICD-10-PCS; principal; 2025-07-02)
DX: J15.69 Pneumonia due to other Gram-negative bacteria (principal); J45.901 Unspecified asthma with (acute) exacerbation; E83.51 Hypocalcemia; J15.0 Pneumonia due to Klebsiella pneumoniae; I10 Essential (primary) hypertension; D64.9 Anemia, unspecified; Z16.12 Extended spectrum beta lactamase (ESBL) resistance; J06.9 Acute upper respiratory infection, unspecified
CPT/HCPCS: 36415; 36556; 36600; 71045; 71250; 80048; 80053; 81001; 82784; 82803; 83605; 83735; 85025; 85610; 85651; 86038; 86140; 86200; 86215; 86235; 86255; 86431; 87040; 87071; 87205; 87426; 94640; 94664; 96374; 96375; 99285; C1894; G0378; J1335; J1956; J2185; J2919; J3475; C1750

== ENCOUNTER → 2025-07-25 | Outpatient (CLI) | payer OTHER ==
[~2025-07-25] MED LIST changes: +ALPR-410 PO; +AMLO-257 PO; +AMLO2.5T4 PO; +AMPH30TA3 PO; -AUD IH; -AZIT500T2 PO; -BENZ-39 PO; -BUDE0.5A3 IH; -BUDE0.5A3 NEB; -BUDE90AE3 IH; +FAMO-136 PO; +FEXO-23 PO; +FLUT16H NS; +FLUT1BLS15 IH; -GUAFACSF5L PO; +MAGN200T4 PO; +MONT-39 PO; +MVIT PO; +OMAL150V SQ; -PANT40TA PO
--- NOTE | 2025-07-25 23:39 | HMCIMG ---
Exam: CT Chest without Contrast Clinical History: Pneumonia Technique: Contiguous axial images of the chest were obtained without intravenous contrast. Reformatted images were generated as appropriate. Radiation dose: CTDIvol 6.4 mGy, DLP 20.4 mGycm. Comparison: Prior CT chest dated July 01, 2025, and chest radiograph dated July 06, 2025. Findings: Lungs: Small areas of ground-glass attenuation infiltrates are noted in the left lower lobe with peribronchovascular interstitial nodules measuring up to 4 mm. Patchy ground-glass opacities with slight bronchiolar wall nodularity are visualized in the right lower lobe. No large areas of consolidation are present. Pleura: No pleural effusion or pneumothorax is identified. Mediastinum: Few mildly enlarged mediastinal lymph nodes are present, up to 6 mm in the pretracheal region. No supraclavicular, hilar, or axillary adenopathy is seen. Bones and Spine: Dextroscoliosis of the thoracic spine with mild degenerative changes. Impression: * Patchy ground-glass opacities and peribronchovascular nodules in the bilateral lower lobes, consistent with resolving pneumonia. * Mild mediastinal lymphadenopathy in the pretracheal region. * Dextroscoliosis of the thoracic spine with mild degenerative changes. * In comparison with the prior CT chest dated July 01, 2025 and chest radiograph dated July 06, 2025, there is significant interval reduction in the degree of lung infiltrates bilaterally, consistent with resolving infection and satisfactory response to treatment. /[place]
== END | disposition home or self-care (01) ==
LOC: RAH 08:32
PROVIDERS: ATTEND Nurse Practitioner
DX: J16.8 Pneumonia due to other specified infectious organisms (principal); M47.814 Spondylosis without myelopathy or radiculopathy, thoracic region; M41.84 Other forms of scoliosis, thoracic region
CPT/HCPCS: 71250